=== PATIENT | male | born 1950 | race Caucasian/White ===

== ENCOUNTER 2016-05-18 10:29 | Inpatient (IN) | payer OTHER ==
[~2016-05-18] VITALS: Ht 175.3 cm; Wt 74.8 kg
[~2016-05-18 10:29] MED LIST: CEFAZOLIN1 G1 IV; CIPRO500 M1 PO
--- NOTE | 2016-05-18 10:36 | NUR ---
SIB DR MONAHAN OFFICE FOR INFECTION ON LEFT FOOT. PT HAD SEVERAL SURGERIES TO THE FOOT, AMPUTATED TOES, WOUND VAC REMOVED 3 MONTHS AGO D/T INFECTION
--- NOTE | 2016-05-18 11:08 | ED ANKLE/FOOT INJURY COMPLAINT ---
History of Present Illness General Chief Complaint: Foot or Ankle Injury Stated Complaint: SIB DR RAY FOR LEFT FOOT ULCER Source: patient, old records Exam Limitations: no limitations Vital Signs & Intake/Output Vital Signs & Intake/Output Vital Signs Date Time Temp Pulse Resp B/P Pulse O2 O2 Flow FiO2 Ox Delivery Rate 05/19 0922 98.7 67 16 113/61 99 Room Air 05/19 0629 99.2 75 18 106/61 99 Room Air 05/19 0442 99.2 70 16 111/66 05/19 0142 96.5 66 18 90/52 98 Room Air 05/18 2242 97.2 73 16 88/52 97 Room Air 05/18 2200 84/48 05/18 2045 80/48 05/18 1945 98.3 104 16 82/42 100 05/18 1902 99.2 05/18 1859 99.2 05/18 1815 101.0 05/18 1734 101.5 102 18 113/62 98 Room Air 05/18 1412 98.9 102 20 120/70 98 Room Air 05/18 1035 99.2 120 20 117/87 99 Room Air ED Intake and Output 05/19 0000 05/18 1200 Intake Total Output Total 250 Balance -250 Output, Urine 250 Patient 165 lb 165 lb Weight Allergies Coded Allergies: Penicillins (Intermediate, ANAPHYLAXIS 03/24/16) vancomycin (Intermediate, DIZZINESS 03/24/16) Uncoded Allergies: CLEANING PRODUCTS (Severe, ANAPHYLAXIS 08/21/15) Reconcile Medications No Known Home Medications Triage Note: SIB DR MONAHAN OFFICE FOR INFECTION ON LEFT FOOT. PT HAD SEVERAL SURGERIES TO THE FOOT, AMPUTATED TOES, WOUND VAC REMOVED 3 MONTHS AGO D/T INFECTION Triage Nurses Notes Reviewed? yes Occurred: last week Duration: week(s): (1), constant, getting worse Timing: recent history Severity: moderate Severity Numbers: 6 Pain/Injury Location: Left: Heel. Method of Injury: unknown Modifying Factors: Worsens With: movement, other (weight bearing). Associated Symptoms: redness HPI: 65 year old male with history of a nonhealing ulcer to his left foot with underlying osteomyelitis, multiple bilateral foot surgeries and amputation status post frostbite presents sent in by his visiting nurse for evaluation. The patient states that he finished a course of Cipro and fracture 10 days ago for infections to his heel. Patient states that since she is finishing antibiotics is noticed increasing more discharge and pain from the wounds, and has been unable to bear weight on the leg secondary to pain. He denies any numbness or tingling no fevers however reports a chills. The visiting nurse comes every other day and states that this has been getting worse. There are no modifying factors otherwise or associated symptoms. (EDY NAIR) Past History Travel History Traveled to [place] past 21 day No Medical History Any Pertinent Medical History? 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 History of MRSA: Yes History of VRE: No History of CDIFF: No Surgical History Surgical History: 12 FOOT SURGERIES APPENDECTOMY Psychosocial History Who do you live with Son Services at Home Nursing What is your primary language Albanian Tobacco Use: Quit >30 days ago ETOH Use: denies use Illicit Drug Use: denies illicit drug use Family History Family History, If Any: Relation not specified for: *No pertinent family history Hx Contributory? No (EDY NAIR) Review of Systems Review of Systems Constitutional: Reports: no symptoms, see HPI. All Other Systems: Reviewed and Negative Comments Review of systems: See HPI, All other systems negative. Constitutional, no chills no fever, no malaise HEENT: No visual changes no sore throat no congestion Cardiovascular: No chest pain , no palpitation Skin, see hpi Respiratory: No dyspnea no cough no sputum GI: No nausea no vomiting, no diarrhea, : No dysuria Muscle skeletal: joint pain, no joint swelling, no back pain, no neck pain, Neurologic: No numbness no confusion, no headache Psych: No stress Heme/endocrine: No bruising no bleeding Immunology: No lymphadenopathy, (EDY NAIR) Physical Exam Physical Exam General Appearance: well developed/nourished, alert, awake Leg/Knee/Thigh Left: normal range of motion Comments: Well-developed well-nourished person in no acute distress HEENT: Normal EENT exam; PERRL, EOMI, HEAD is atraumatic. moist mucous membranes. Neck: Supple normal range of motion Back: Nontender, no CVA tenderness. Full range of motion Cardiovascular: Regular rate and rhythms no murmurs rubs Respiratory: No respiratory distress. Patient speaking in full complete sentences. Breath sounds clear to auscultation bilaterally: NO W/R/R Abdomen: Soft, nontender upper Extremity: No edema, full range of motion of extremities, normal and equal pulses bilaterally, 5 out of 5 strength noted to bilateral upper extremities Hip/Pelvis: Atraumatic/Stable. FROM. No pain with pelvic compression Knee: Atraumatic/stable. FROM. No joint swelling, no effusion. No laxity. No pain with ROM Leg: Atraumatic. Nontender. No edema, 5 out of 5 strength in the lower extremity, normal dorsiflexion of great toe bilaterally, gross sensation is intact Ankle/Foot: Status post left foot tarsal amputation, there is a 1 x 1 cm open sore to the medial malleolus with surrounding erythema and induration tenderness to palpation , seroussanguois discharge noted noted dressing, there is a 7 x 4 cm chronic wound to the distal aspect of the left foot there is no discharge no surrounding erythema, there is a 1 x 1 cm open sore to the lateral malleolus with mild surrounding erythema and no induration, minimal discharge, no effusion. No laxity on exam Pulses: Normal/equal DP/PT pulses bilaterally. Brisk cap refill Neuro: Alert oriented x3, motor sensory normal, There were no obvious focal neurologic abnormalities. Skin: No appreciable rash on exposed skin, skin is warm and dry. Psych: Mood and affect is normal, memory and judgment is normal. (RICO FLORES,EDY) Progress Differential Diagnosis: cellulitis, septic arthritis, gout, fracture, contusion, compartmental syndrome, osteomyelitis Plan of Care: Orders Procedure Date/time Status TROPONIN LEVEL 05/19 1300 Active EKG 05/19 1300 Active Patient Data 05/19 0808 Active TROPONIN LEVEL 05/19 0600 Complete EKG 05/19 0600 Active LACTIC ACID 05/19 0117 Complete Add-on Test (ER Only) 05/19 0111 Active EKG 05/19 0100 Active Transfer patient to 05/19 UNK Active Regular Diet 05/18 D Active TROPONIN LEVEL 05/18 2330 Complete LACTIC ACID 05/18 2216 Complete EKG 05/18 2216 Active Turn and Reposition 05/18 171 Active Skin Integrity Protocol 05/18 171 Active Skin/Pressure Ulcer Assess (Sk 05/18 171 Active NUTRITIONAL CONSULT 05/18 171 Active Teach/Educate 05/18 164 Active Nutritional Intake, Monitor 05/18 1646 Active Isolation 05/18 164 Active Patient Care Conference 05/18 1646 Active Activity/Ambulation 05/18 1646 Active Intake & Output 05/18 1411 Active Patient Data 05/18 1358 Active Vital Signs 05/18 1358 Active Admit to inpatient 05/18 1204 Active THYROID STIMULATING HORMONE 05/18 1151 Complete GLYCOSYLATED HGB 05/18 1151 Active FREE T4 05/18 1151 Complete Code Status 05/18 1148 Active PARTIAL THROMBOPLASTIN TIME 05/18 1139 Complete PROTHROMBIN TIME 05/18 1139 Complete Saline Lock 05/18 1129 Active BLOOD CULTURE 05/18 1129 Active COMPREHENSIVE METABOLIC PANEL 05/18 1129 Complete CBC WITHOUT DIFFERENTIAL 05/18 1129 Complete Current Medications Sig/Efren Start time Last Medication Dose Stop Time Status Admin Acetaminophen 650 MG Q6-PRN PRN 05/18 1815 AC (Tylenol) Oxycodone/ 1 TAB Q4P PRN 05/18 1800 AC Acetaminophen (Percocet) Laboratory Tests 05/19/16 0646: Troponin I 0.54 *H 05/19/16 0135: Lactic Acid 1.2 05/18/16 2341: Troponin I 0.44 *H 05/18/16 2341: Lactic Acid 1.4 05/18/16 1151: Hemoglobin A1c Pending 05/18/16 1151: Anion Gap 13, Estimated GFR > 60, BUN/Creatinine Ratio 13.0, Glucose 111 H, Calcium 9.8, Total Bilirubin 0.4, AST 15 L, ALT 25, Alkaline Phosphatase 263 H , Total Protein 7.4, Albumin 3.7, Globulin 3.7, Albumin/Globulin Ratio 1.0 L, TSH 2.320, Free T4 1.37, PT 13.0 H, INR 1.24 H, APTT 30, CBC w Diff NO MAN DIFF REQ, RBC 4.36 L, MCV 78.0 L, MCH 25.6 L, RDW 16.5 H, MPV 7.5, Gran % 77.8 H, Lymphocytes % 12.9 L, Monocytes % 5.7, Eosinophils % 1.9, Basophils % 1.7, Absolute Granulocytes 7.4 H, Absolute Lymphocytes 1.2, Absolute Monocytes 0.5, Absolute Eosinophils 0.2, Absolute Basophils 0.2, PUBS MCHC 32.8 L Microbiology 05/18 1151 BLOOD: Blood Culture - RECD 05/18 1138 BLOOD: Blood Culture - RECD Labs ordered old records reviewed call placed to podiatry Case discussed with Dr. hernandez 05/18/2016 11:51:58 AM I spoke with Dr. Monahan who advised drink oh and Cipro blood cultures coags MRI of the foot without contrast. And he will admit to his service. 05/18/2016 1:39:32 PM discussed with the patient all his lab results resting comfortably nausea has resolved with Zofran (RICO FLORES,EDY) Diagnostic Imaging: Viewed by Me: MRI. Discussed w/RAD: MRI. Radiology Impression: PATIENT: NALINI CALLOWAY PRESENT AGE: 65 PATIENT ACCOUNT NO: [id number] : 52 LOCATION: [facility] ORDERING PHYSICIAN: EDY FLORES SERVICE DATE: 05/18/16 EXAM TYPE: MRI - MRI- LT FOOT W/O PAWEL EXAMINATION: MRI OF LEFT FOOT WITHOUT CONTRAST CLINICAL INFORMATION: 65-year-old male with history of osteomyelitis. Left foot wound. Evaluate for fluid collection. COMPARISON: Radiographs of left foot from 2015 and MRI of the foot from 02/17/2016. TECHNIQUE: Noncontrast MR imaging examination of the left foot and ankle was performed on a high-field 1.5 Tara magnet using long axis STIR, sagittal STIR and sagittal T1-weighted sequences. The MR technologist reports that patient was in severe pain, had vomiting, and was unable to undergo additional imaging. FINDINGS: Compared to 02/17/2016, there are new erosions of the plantar, lateral cuboid with surrounding sclerosis and extensive marrow edema of the cuboid, consistent with osteomyelitis. There is minimal cortical erosive change at the base of the fifth metatarsal with new marrow edema in the residual fifth metatarsal. Compared to 02/17/2016, there is increased bone marrow edema of the residual fourth metatarsal. The other residual metatarsal bases, middle cuneiform and medial cuneiform have been resected. There are new findings of marrow edema/inflammation within the lateral cuneiform and navicular, and there is new, patchy edema within the anterior calcaneus, as well, extending from the region of the calcaneocuboid joint, which has a small joint effusion. The talus, visualized distal tibia and fibula have normal marrow signal. No ankle joint effusion. The visualized muscles of the extremity are hyperintense on T2 imaging, likely secondary to chronic diabetic neuropathy/myopathy. There are no fluid collections detected on this noncontrast exam. The distal Achilles tendon is normal. The visualized flexor, extensor and tibialis tendons are unremarkable. A small amount of tenosynovial fluid surrounds the distal posterior tibial tendon, suggestive of mild tenosynovitis. IMPRESSION: Compared to 02/17/2016, there has been interval resection of the 1st, 2nd and 3rd metatarsal bases as well as medial and middle cuneiforms. Current findings show progression of osteomyelitis, now involving the cuboid, adjacent anterior calcaneus, 4th and 5th metatarsal bases, lateral cuneiform, and likely the navicular, as well. No focal fluid collections. DICTATED BY: ELIZABETH RENTERIA MD DATE/TIME DICTATED:05/18/161524 HOUSE PAINTING INSTRUCTOR:SHABNAM DATE/TIME TRANSCRIBED:05/18/161524 CONFIDENTIAL, DO NOT COPY WITHOUT APPROPRIATE AUTHORIZATION. <Electronically signed in Other Vendor System> SIGNED BY: ELIZABETH RENTERIA MD 05/18/16 1546 (EDY NAIR) Departure Departure Time of Disposition: 1145 Disposition: STILL A PATIENT Condition: Stable Clinical Impression Primary Impression: Osteomyelitis Secondary Impressions: Cellulitis Referrals: PATIENT HAS NO PRIMARY CARE DR (PCP/Family) Departure Forms: Customer Survey General Discharge Information Prescriptions: Current Visit Scripts No Known Home Medications Admission Note Spoke With: ZENA MONAHAN DPM Documentation of Exam: Documentation of any treatments & extenuating circumstances including Concerns Regarding Discharge (functional status, medication knowledge or non-compliance, living conditions, etc.) that warrant an admission rather than observation: [IV antibiotics trend labs pending MRI possible OR, trend blood cultures premature discharge the medically harmful (EDY NAIR) PA/DIRECTOR EDUCATION Co-Sign Statement Statement: ED Attending supervision documentation- [X] I saw and evaluated the patient. I have also reviewed all the pertinent lab results and diagnostic results. I agree with the findings and the plan of care as documented in the PA's/DIRECTOR EDUCATION's documentation. [X] I have reviewed the ED Record and agree with the PA's/DIRECTOR EDUCATION's documentation. [] Additions or exceptions (if any) to the PAs/DIRECTOR EDUCATION's note and plan are summarized below: [] (OLIVER NGUYEN,KALIN)
--- NOTE | 2016-05-18 11:44 | NUR ---
PT TO [facility], STATES THAT HE HAD BOTTOM OF L FOOT AMPUTATED BY DR MONAHAN IN FEBRUARY AND THAT HE HAD A WOUND VAC PLACED FOR A FEW MONTHS AND THEN REMOVED, STATES THAT HE WAS STARTED ON ABT BEFORE DANIELLE BY DR MONAHAN DUE TO INFECTION , FINISHED THEM DANIELLE ARMSTRONG AND 2 DAYS LATER FODIAMOND BECAME INFECTED AGAIN, STATES THAT HE HAS A LOT OF PAIN AND THAT HE CAN BARELY WALK EVEN WITH THE ASSISTANCE OF A WALKER. PT EVALUATED AND IS TO BE ADMITTED. 1ST SET BC DRAWN AND SENT
[2016-05-18 11:58] LABS: ABSOLUTE BASOPHIL COUNT 0.2 /CUMM (0.0-0.2); ABSOLUTE EOSINOPHIL COUNT 0.2 /CUMM (0.0-0.7); ABSOLUTE GRANULOCYTE CT 7.4 /CUMM (1.4-6.5); ABSOLUTE LYMPH COUNT 1.2 /CUMM (1.2-3.4); ABSOLUTE MONOCYTE COUNT 0.5 /CUMM (0.10-0.60); BASOPHIL % 1.7 % (0.0-2.0); EOSINOPHIL % 1.9 % (0-5); GRANULOCYTE % 77.8 % (42.2-75.2); MEAN CORPUSCULAR HGB 25.6 PG (27.0-31.0); MEAN CORPUSCULAR HGB CONC 32.8 G/DL (33.0-37.0); MEAN PLATELET VOLUME 7.5 FL (7.4-10.4); PLATELET COUNT 626 /CUMM (130-400); RBC DISTRIBUTION WIDTH 16.5 % (11.5-14.5); RED BLOOD CELL CT 4.36 /CUMM (4.70-6.10); WHITE BLOOD CELL COUNT 9.4 /CUMM (4.8-10.8)
--- NOTE | 2016-05-18 12:03 | NUR ---
IV ABT INFUSING AFTER BC X 2 SENT. FOOD TRAY ORDERED AT THIS TIME
[2016-05-18 12:20] LABS: PTT 30 SEC (25-37)
--- NOTE | 2016-05-18 12:55 | NUR ---
PT COMPLAINS OF NAUSEA AT THIS TIME. STATES THAT HE FEELS THE ABT IS MAKING HIM SICK. PT HAS HAD VANCO IN THE PAST. PT ALSO COMPLAINS THAT HE CAN'T STOP SHIVERING AT THIS TIME, TEMP 99.6 PA AWARE, PT NEDICATED WITH ZOFRAN PER ORDER
--- NOTE | 2016-05-18 14:13 | NUR ---
PT RESTING ON SELECT AT [place], AWARE THAT HE IS TO BE ADMITTED TO HOSPITAL AND THAT DR MONAHAN TO COME SEE HIM. PT WAITING TO HAVE MRI.
--- NOTE | 2016-05-18 14:40 | NUR ---
PT ASSISTED UP TO BATHROOM VIA WHEEL CHAIR, PT NEEDED ASSISTANCE TO STAND DUE TO PAIN IN HIS L FOOT, PT COMPLAINED OF NAUSEA WHILE IN THE BATHROOM AND THEN VOMITTED A SMAL AMOUNT, PA AWARE AND PT MEDICATED WITH ZOFRAN. PT ASSISTED BACK TO STRETCHER AND OVER TO MRI AT THIS TIME
--- NOTE | 2016-05-18 15:29 | NUR ---
PT STATES THAT HIS STOMACH IS STILL UPSET, PA AT BEDSIDE AND PEPCID IV ORDERED AND HUNG AT THIS TIME.
--- NOTE | 2016-05-18 15:48 | MRI REPORT ---
EXAMINATION: MRI OF LEFT FOOT WITHOUT CONTRAST CLINICAL INFORMATION: 65-year-old male with history of osteomyelitis. Left foot wound. Evaluate for fluid collection. COMPARISON: Radiographs of left foot from 02/15/2016 and MRI of the foot from 02/17/2016. TECHNIQUE: Noncontrast MR imaging examination of the left foot and ankle was performed on a high-field 1.5 Tara magnet using long axis STIR, sagittal STIR and sagittal T1-weighted sequences. The MR technologist reports that patient was in severe pain, had vomiting, and was unable to undergo additional imaging. FINDINGS: Compared to 02/17/2016, there are new erosions of the plantar, lateral cuboid with surrounding sclerosis and extensive marrow edema of the cuboid, consistent with osteomyelitis. There is minimal cortical erosive change at the base of the fifth metatarsal with new marrow edema in the residual fifth metatarsal. Compared to 02/17/2016, there is increased bone marrow edema of the residual fourth metatarsal. The other residual metatarsal bases, middle cuneiform and medial cuneiform have been resected. There are new findings of marrow edema/inflammation within the lateral cuneiform and navicular, and there is new, patchy edema within the anterior calcaneus, as well, extending from the region of the calcaneocuboid joint, which has a small joint effusion. The talus, visualized distal tibia and fibula have normal marrow signal. No ankle joint effusion. The visualized muscles of the extremity are hyperintense on T2 imaging, likely secondary to chronic diabetic neuropathy/myopathy. There are no fluid collections detected on this noncontrast exam. The distal Achilles tendon is normal. The visualized flexor, extensor and tibialis tendons are unremarkable. A small amount of tenosynovial fluid surrounds the distal posterior tibial tendon, suggestive of mild tenosynovitis. IMPRESSION: Compared to 02/17/2016, there has been interval resection of the 1st, 2nd and 3rd metatarsal bases as well as medial and middle cuneiforms. Current findings show progression of osteomyelitis, now involving the cuboid, adjacent anterior calcaneus, 4th and 5th metatarsal bases, lateral cuneiform, and likely the navicular, as well. No focal fluid collections.
--- NOTE | 2016-05-18 16:10 | NUR ---
PT NOTED TO BE SLEEPING AT THIS TIME , REGULAR RESP RATE NOTED , FLUIDS CONTINUE TO INFUSE AT THIS TIME
--- NOTE | 2016-05-18 17:36 | NUR ---
PT FEBRILE AT THIS TIME AWARE
--- NOTE | 2016-05-18 17:51 | History & Physical Pre-Op ---
General Information and HPI History of Present Illness: Eulalio is a 65-year-old male with a history of locally invasive non-melanotic carcinoma, complicated by a chronic and recurrent left foot osteomyelitis. The patient is status post TMA right foot without any postoperative problems. Unfortunately, the patient presents to the ER today with a complaint of a red, swollen and painful left foot. Patient states that the home nurse became concerned after noticing drainage from the open ulceration. Eulalio denies systemic signs of infection. Patient denies nausea vomiting fever chills. 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 History of MRSA: Yes History of VRE: No History of CDIFF: No Isolation History: Standard Influenza Vaccine: 05/19/15 Surgical History Pertinent Surgical History: 12 FOOT SURGERIES APPENDECTOMY Past Family/Social History Family History Relations & Conditions if any Relation not specified for: *No pertinent family history Psychosocial History Where Do You Live? Home Who Do You Live With? 2 sons Services at Home Nursing Primary Language: Albanian Smoking Status: Current Everyday Smoker ETOH Use: denies use Illicit Drug Use: denies illicit drug use Functional Ability ADLs Independent: dressing, eating, toileting, bathing. Ambulation: independent IADLs Independent: shopping, housework, finances, food prep, telephone, transportation , medication admin. Review of Systems Review of Systems: Unremarkable except that noted in history of present illness Exam & Diagnostic Data Last 24 Hrs of Vital Signs/I&O Vital Signs Date Time Temp Pulse Resp B/P Pulse O2 O2 Flow FiO2 Ox Delivery Rate 05/18 1734 101.5 102 18 113/62 98 Room Air 05/18 1412 98.9 102 20 120/70 98 Room Air 05/18 1035 99.2 120 20 117/87 99 Room Air Intake & Output 05/18 1600 05/18 0800 05/18 0000 Intake Total Output Total 250 Balance -250 Output, Urine 250 Patient 165 lb Weight Physical Exam: A necrotic ulcer is noted to the distal medial stump of the left foot with some purulent drainage identified medially and laterally. There is edema and proximal 3-4 cm of cellulitis extending about the periphery of the open wound. No crepitus or fluctuance identified. There is probing noted centrally at the wound bed approximately 2-3 cm. Assessment/Plan Assessment/Plan: Left foot cellulitis with a chronic and recalcitrant left foot osteomyelitis. Patient will be admitted for IV antibiotics and MRI to rule out persistent or recurrent osteomyelitis. As Ranked By This Provider Problem List: 1. Cellulitis 2. Osteomyelitis Attending MD Review Statement Attending Statement Attending MD Statement: examined this patient
--- NOTE | 2016-05-18 18:15 | NUR ---
IV TYLENOL INFUSING DUE TO TEMP 101.0 DR MONAHAN AT BEDSIDE AT THIS TIME TO SPEAK WITH PT
--- NOTE | 2016-05-18 18:59 | NUR ---
TEMP 99.2 AT THIS TIME , PT SITTING UP AND EATING DINNER. DENIES NAUSEA ,
--- NOTE | 2016-05-18 20:15 | NUR ---
REPEAT BLOOD PRESSURE 80/42 MANUALLY. NS BOLUS STARTED PER DR CARRERO
--- NOTE | 2016-05-18 20:59 | NUR ---
I SPOKE TO DR MONAHAN REGARDING PT'S DROP IN BP. DR MONAHAN MADE MEDICAL REFERRAL TO ATTENDING
--- NOTE | 2016-05-18 21:00 | NUR ---
ATTENDING AT BEDSIDE FOR EVAL
--- NOTE | 2016-05-18 21:31 | NUR ---
HOUSE STAFF AT BEDSIDE FOR EVAL
--- NOTE | 2016-05-18 22:17 | Cons- Medical ---
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 Patient presented to the emergency department after being evaluated by the visiting nurse due to left foot discharge, MRI was done and showed slow progression of the left foot osteomyelitis ow involving the cuboid, adjacent anterior calcaneus, 4th and 5th metatarsal bases, lateral cuneiform, and likely the navicular. Patient was started on IV vancomycin and ciprofloxacin. And the patient will call for the operation room most likely tomorrow for possible excision and debridement by Dr. Meneses. Couple hours after admission patient had low blood pressure of 80/48 from average 110/80, patient deny any symptoms like chest pain, discomfort, dizziness, lightheaded, feeling dehydrated, difficulty breathing, palpitation, orthopnea, swelling in his lower extremity. Abdominal pain, nausea, vomiting, hematuria, dysuria, burning during urination, headaches, change in vision or hearing. On admission patient has temperature of 101.5. Tachycardia 100s. Allergies/Medications Allergies: Coded Allergies: Penicillins (Intermediate, ANAPHYLAXIS 03/24/16) vancomycin (Intermediate, DIZZINESS 03/24/16) Uncoded Allergies: CLEANING PRODUCTS (Severe, ANAPHYLAXIS 08/21/15) Home Med List: No Known Home Medications Current Medications: Current Medications Sig/Efren Start time Last Medication Dose Route Stop Time Status Admin Acetaminophen 1,000 MG ONCE ONE 05/18 1815 DC 05/18 N/A 1 UNIT IV 05/18 1829 1815 Acetaminophen 650 MG Q6-PRN PRN 05/18 1815 AC PO Acetaminophen 0 .STK-MED ONE 05/18 1808 DC IV Ciprofloxacin 400 MG BID 05/18 2200 AC 05/18 IV 2358 Ciprofloxacin 500 MG ONCE ONE 05/18 1200 DC 05/18 PO 05/18 1201 1202 Ciprofloxacin 0 .STK-MED ONE 05/18 1156 DC PO Famotidine 20 MG ONCE ONE 05/18 1530 DC / IV 05/18 1531 1529 Famotidine 0 .STK-MED ONE 05/18 1527 DC IV Heparin Sodium 0 .STK-MED ONE 05/18 2347 DC (Porcine) .ROUTE Heparin Sodium 5,000 UNIT Q8 05/18 2200 AC 05/18 (Porcine) SC 2358 Ondansetron HCl 0 .STK-MED ONE 05/18 1436 DC .ROUTE Ondansetron HCl 4 MG ONCE ONE 05/18 1430 DC 05/18 IV 05/18 1431 1440 Ondansetron HCl 4 MG ONCE ONE 05/18 1315 DC / IV 05/18 1316 1305 Ondansetron HCl 0 .STK-MED ONE 05/18 1259 DC .ROUTE Oxycodone/ 1 TAB Q4P PRN 05/18 1800 AC Acetaminophen PO Sodium Chloride 1,000 ML BOLUS ONE 05/18 2315 DC / IV 05/19 0014 2358 Sodium Chloride 1,000 ML BOLUS ONE 05/18 2045 DC 05/18 IV 05/18 2144 2059 Sodium Chloride 1,000 ML BOLUS ONE 05/18 1445 DC / IV 05/18 1544 1500 Vancomycin HCl 1,000 MG Q12 05/18 2200 AC 05/18 Sodium Chloride 250 ML IV 2359 Vancomycin HCl 1,000 MG ONCE ONE 05/18 1200 DC 05/18 Sodium Chloride 250 ML IV 05/18 1339 1202 Vancomycin HCl 0 .STK-MED ONE 05/18 1156 DC .ROUTE Review of Systems Review of Systems Constitutional: Reports: see HPI. EENTM: Reports: see HPI. Cardiovascular: Reports: see HPI. Respiratory: Reports: see HPI. GI: Reports: see HPI. Genitourinary: Reports: see HPI. Musculoskeletal: Reports: see HPI. 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 Surgical History Surgical History: 12 FOOT SURGERIES APPENDECTOMY Family History Relations & Conditions If Any: Relation not specified for: *No pertinent family history Psychosocial History Where Do You Live? Home Who Do You Live With? 2 sons Services at Home: Nursing Primary Language: Ukrainian Smoking Status: Current Everyday Smoker ETOH Use: denies use Illicit Drug Use: denies illicit drug use Functional Ability ADLs Independent: dressing, eating, toileting, bathing. Ambulation: independent IADLs Independent: shopping, housework, finances, food prep, telephone, transportation , medication admin. Exam & Diagnostic Data Last 24 Hrs of Vital Signs/I&O Vital Signs Date Time Temp Pulse Resp B/P Pulse O2 O2 Flow FiO2 Ox Delivery Rate 05/18 2242 97.2 73 16 88/52 97 Room Air 05/18 2200 84/48 05/18 2045 80/48 05/18 1945 98.3 104 16 82/42 100 05/18 1902 99.2 05/18 1859 99.2 05/18 1815 101.0 05/18 1734 101.5 102 18 113/62 98 Room Air 05/18 1412 98.9 102 20 120/70 98 Room Air 05/18 1035 99.2 120 20 117/87 99 Room Air Intake & Output 05/19 0800 05/19 0000 05/18 1600 Intake Total Output Total 250 Balance -250 Output, Urine 250 Patient 165 lb Weight Physical Exam General Appearance: well developed/nourished, no apparent distress, alert, awake , comfortable Head: atraumatic, normal appearance Eyes: Bilateral: normal appearance, PERRL, EOMI. Neck: normal inspection, supple Respiratory: normal breath sounds, chest non-tender, no respiratory distress, lungs clear Cardiovascular: regular rate/rhythm Peripheral Pulses: 2+ radial (R), 2+ radial (L) Gastrointestinal: normal bowel sounds, soft, non-tender Extremities: RIGHT FOOT STATUS POST EXCISION AND DEBRIDEMENT, LEFT FOOT DRESSING NOTED CLEAN Last 24 Hrs of Labs/Alex: Laboratory Tests 05/18/16 2341: Troponin I 0.44 *H 05/18/16 2341: Lactic Acid 1.4 05/18/16 1151: Anion Gap 13, Estimated GFR > 60, BUN/Creatinine Ratio 13.0, Glucose 111 H, Calcium 9.8, Total Bilirubin 0.4, AST 15 L, ALT 25, Alkaline Phosphatase 263 H , Total Protein 7.4, Albumin 3.7, Globulin 3.7, Albumin/Globulin Ratio 1.0 L, PT 13.0 H, INR 1.24 H, APTT 30, CBC w Diff NO MAN DIFF REQ, RBC 4.36 L, MCV 78.0 L, MCH 25.6 L, RDW 16.5 H, MPV 7.5, Gran % 77.8 H, Lymphocytes % 12.9 L, Monocytes % 5.7, Eosinophils % 1.9, Basophils % 1.7, Absolute Granulocytes 7.4 H, Absolute Lymphocytes 1.2, Absolute Monocytes 0.5, Absolute Eosinophils 0.2, Absolute Basophils 0.2, PUBS MCHC 32.8 L Diagnostic Data EKG Results ST segment elevation in lead II and V6, otherwise sinus rhythm heart rate 76 QTC 419 Other Results EXAM TYPE: MRI - MRI-LT FOOT W/O PAWEL EXAMINATION: MRI OF LEFT FOOT WITHOUT CONTRAST CLINICAL INFORMATION: 65-year-old male with history of osteomyelitis. Left foot wound. Evaluate for fluid collection. COMPARISON: Radiographs of left foot from 02/15/2016 and MRI of the foot from 02/17/2016. TECHNIQUE: Noncontrast MR imaging examination of the left foot and ankle was performed on a high-field 1.5 Tara magnet using long axis STIR, sagittal STIR and sagittal T1-weighted sequences. The MR technologist reports that patient was in severe pain, had vomiting, and was unable to undergo additional imaging. FINDINGS: Compared to 02/17/2016, there are new erosions of the plantar, lateral cuboid with surrounding sclerosis and extensive marrow edema of the cuboid, consistent with osteomyelitis. There is minimal cortical erosive change at the base of the fifth metatarsal with new marrow edema in the residual fifth metatarsal. Compared to 02/17/2016, there is increased bone marrow edema of the residual fourth metatarsal. The other residual metatarsal bases, middle cuneiform and medial cuneiform have been resected. There are new findings of marrow edema/inflammation within the lateral cuneiform and navicular, and there is new, patchy edema within the anterior calcaneus, as well, extending from the region of the calcaneocuboid joint, which has a small joint effusion. The talus, visualized distal tibia and fibula have normal marrow signal. No ankle joint effusion. The visualized muscles of the extremity are hyperintense on T2 imaging, likely secondary to chronic diabetic neuropathy/myopathy. There are no fluid collections detected on this noncontrast exam. The distal Achilles tendon is normal. The visualized flexor, extensor and tibialis tendons are unremarkable. A small amount of tenosynovial fluid surrounds the distal posterior tibial tendon, suggestive of mild tenosynovitis. IMPRESSION: Compared to 02/17/2016, there has been interval resection of the 1st, 2nd and 3rd metatarsal bases as well as medial and middle cuneiforms. Current findings show progression of osteomyelitis, now involving the cuboid, adjacent anterior calcaneus, 4th and 5th metatarsal bases, lateral cuneiform, and likely the navicular, as well. No focal fluid collections. 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 Patient presented to the emergency department after being evaluated by the visiting nurse due to left foot discharge. Troponin and lactic acid was added after we saw the patient, troponin came back 0.44, security developer land conservation specialist Dr. Monge was notified, and he advised to keep trending troponin and EKG and transferred the patient to telemetry floor, no need for anticoagulation for now as that could be most likely secondary to underlying infection. Dr. Monahan was notified. Problem list: -Recurrent osteomyelitis -Hypotension most likely secondary to sepsis -Positive troponin with EKG changes Plan: -Transferred the patient to telemetry floor for close monitoring -We'll continue IV normal saline fluid bolus up to 4 L -We'll start the patient on maintenance IV fluid after blood pressure maintained above 95 systolic. -We'll continue trending the patient blood pressure -We'll continue trending the patient troponin and EKG -Cardiology team will see the patient in morning -We will hold off any anticoagulation for now and will notify the security developer if any acute changes h happened overnight. -We'll check the patient TSH, free T4, hemoglobin A1c Consult Acknowledgment - Thank you for your consult request. ROSANGELA,AARTEMelanie 05/18/16 0409: Assessment/Plan Consult Acknowledgment - Thank you for your consult request. Attending MD Review Statement Attending Statement Attending MD Statement: examined this patient, discuss w/resident/PA/INVESTIGATIVE SHOPPER, agreed w/resident/PA/INVESTIGATIVE SHOPPER, reviewed EMR data (avail), reviewed images, amended to note Attending Assessment/Plan: CC: Hypotension PMHx: Recurrent Foot infections secondary, remote history frostbite, locally invasive non-melanotic carcinoma on the left foot, S/P DM a right foot patient Patient was sent to ER by home nurse for worsening left foot infection, which was read swollen and painful and pus draining according to patient. Patient was admitted awaiting bed for [facility], developed episode of hypotension in ER. So medical team was consulted. Patient was comfortably sitting, denied any chest pain, diaphoresis, palpitations, headache, presyncope, abdominal pain, nausea vomiting, diarrhea. No obvious bleeding. Patient denies any history of hypertension, diabetes, previous DC or stroke. Patient smokes "5 cigarettes"per day quit 5 days back. Denied alcohol use, denied illicit drug use, allergic to penicillin. Vitals: Tmax 101.5, tachycardia in 110s, RR 16, at presentation blood pressure was 117/87 which dropped down to 82/52. Saturating well on room air. On examination: On a O 3, no acute distress, no diaphoresis, no respiratory distress, neck supple, no lymphadenopathy, mucosa dry, CVS: S1-S2, RRR. RS: Clear air Entry bilaterally present. Abdomen: Soft, NT, ND, bowel sounds present, no focal neurological deficit. Left lower extremity : Redness, warmth, tender, mild edema along with foot wound dressed., No obvious crepitus. (I personally did not see the wound as Dr. Monahan had seen and dressed the wound) Labs : WBC 9.4, granulocytes 77%, hemoglobin 11.1 (no change since February), platelet count 626, INR 1.24, BMP, LFT, unremarkable except glucose 111, alkaline phosphatase 263 (chronically elevated ) Previous hemoglobin A1c 5.2. Previous left LE wound cultures were reviewed shows alpha strep, diphtheroids, Pseudomonas. MR right foot was obtained: Which shows concern of progression of osteomyelitis. A and P #1 hypotension: Secondary to sepsis with underlying osteomyelitis with secondary cellulitis, no evidence of acute volume loss. No acute evidence of any chest pain or elevated JVD. Aggressive hydration up to 2-3 L, followed by maintenance fluid. Closely watch blood pressure, pressors if indicated., Trend lactic acid, check EKG. And agree with vancomycin and ciprofloxacin. If persistently hypotensive and fever spikes then add metronidazole for anaerobic coverage. #2 anemia: No evidence of acute blood loss on chronic blood loss on history and physical examination. His hemoglobin is chronically low since February. But his platelets is elevated in this situation iron studies should be obtained to rule out any iron deficiency anemia secondary to chronic blood Vs anemia of chronic disease secondary to recurrent infections. This can be done outpatient. #3 continue DVT prophylaxis Appreciate consult, we will follow.
--- NOTE | 2016-05-18 23:43 | NUR ---
BLOOD DRAWN AND SENT TO LAB [facility]
--- NOTE | 2016-05-18 23:58 | NUR ---
2ND NS BOLUS STARTED. PT MEDICATED WITH CIPRO 400MG AT 400MG/HR IN L FA. PT ALSO MEDICATED WITH VANCOMYCIN 1G AT 1G/HR
--- NOTE | 2016-05-19 00:36 | NUR ---
CRITICAL TEST RESULTS [id number] NALINI CALLOWAY 65 M TESTS AND RESULTS: TROPONIN 0.44 Results received and read back by: OLLIE PANTOJA Results received date and time: 05/19/16 0037 The following provider was notified of the results, and read the results back: DR KENDALL Notified date and time: 05/19/16 at 0032
--- NOTE | 2016-05-19 01:39 | NUR ---
BLOOD DRAWN AND SENT TO LAB [facility]
--- NOTE | 2016-05-19 03:06 | NUR ---
FOURTH NS BOLUS STARTED
--- NOTE | 2016-05-19 04:42 | NUR ---
NS BOLUS COMPLETE. PT BP RETURNED TO BASELINE AT 111/66
--- NOTE | 2016-05-19 05:39 | NUR ---
PT MEDICATED WITH HEPARIN 5,000 UNITS IN R ABD. NS STARTED AT 100ML/HR
--- NOTE | 2016-05-19 06:48 | NUR ---
REPEAT TROPONIN OBTAINED AND SENT TO LAB
--- NOTE | 2016-05-19 07:30 | NUR ---
CRITICAL TEST RESULTS [id number] NALINI CALLOWAY 65 M TESTS AND RESULTS: TROPONIN 0.54 Results received and read back by: MIGUEL NÚÑEZ Results received date and time: 05/19/16 0730 The following provider was notified of the results, and read the results back: HOUSE STAFF PAGED Notified date and time: 05/19/16 at 0730
--- NOTE | 2016-05-19 07:34 | NUR ---
MOD AWARE OF TROPONIN LEVEL AT THIS TIME.
--- NOTE | 2016-05-19 07:50 | NUR ---
PT RESTING ON STRETCHER, OFFERS NO COMPLAINTS AT THIS TIME. REMAINS NSR ON MONITOR. DENIES CHEST PAIN.
--- NOTE | 2016-05-19 08:10 | NUR ---
PT UPGRADED TO TELE. MOD/REG/NURSE SUPER AWARE.
--- NOTE | 2016-05-19 10:17 | Cons- Cardiology ---
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 Patient presented to the emergency department after being evaluated by the visiting nurse due to left foot discharge, MRI was done and showed slow progression of the left foot osteomyelitis ow involving the cuboid, adjacent anterior calcaneus, 4th and 5th metatarsal bases, lateral cuneiform, and likely the navicular. Patient was started on IV vancomycin and ciprofloxacin. And the patient will call for the operation room most likely tomorrow for possible excision and debridement by Dr. Meneses. Couple hours after admission patient had low blood pressure of 80/48 from average 110/80, patient deny any symptoms like chest pain, discomfort, dizziness, lightheaded, feeling dehydrated, difficulty breathing, palpitation, orthopnea, swelling in his lower extremity. Abdominal pain, nausea, vomiting, hematuria, dysuria, burning during urination, headaches, change in vision or hearing. On admission patient has temperature of 101.5. Tachycardia 100s. The above HPI was obtained from the house staff. Patient has low functional activity. He denies any chest pains or unusual shortness of breath. He has no primary doctor. He claims to have no medical problems. His been a long-standing smoker. Allergies/Medications Allergies: Coded Allergies: Penicillins (Intermediate, ANAPHYLAXIS 03/24/16) vancomycin (Intermediate, DIZZINESS 03/24/16) Uncoded Allergies: CLEANING PRODUCTS (Severe, ANAPHYLAXIS 08/21/15) Home Med List: No Known Home Medications Current Medications: Current Medications Sig/Efren Start time Last Medication Dose Route Stop Time Status Admin Acetaminophen 1,000 MG ONCE ONE 05/18 181 DC 05/18 N/A 1 UNIT IV 05/18 182 181 Acetaminophen 650 MG Q6-PRN PRN 05/18 181 AC PO Acetaminophen 0 .STK-MED ONE 05/18 1808 DC IV Ciprofloxacin 400 MG BID 05/18 2200 AC 05/18 IV 2358 Ciprofloxacin 500 MG ONCE ONE 05/18 1200 DC 05/18 PO 05/18 1201 1202 Ciprofloxacin 0 .STK-MED ONE 05/18 1156 DC PO Famotidine 20 MG ONCE ONE 05/18 1530 DC / IV 05/18 1531 1529 Famotidine 0 .STK-MED ONE 05/18 1527 DC IV Heparin Sodium 0 .STK-MED ONE 05/19 0533 DC (Porcine) .ROUTE Heparin Sodium 0 .STK-MED ONE 05/18 2347 DC (Porcine) .ROUTE Heparin Sodium 5,000 UNIT Q8 05/18 2200 AC 05/19 (Porcine) SC 0538 Ondansetron HCl 0 .STK-MED ONE 05/18 1436 DC .ROUTE Ondansetron HCl 4 MG ONCE ONE 05/18 1430 DC 05/18 IV 05/18 1431 1440 Ondansetron HCl 4 MG ONCE ONE 05/18 1315 DC 05/18 IV 05/18 1316 1305 Ondansetron HCl 0 .STK-MED ONE 05/18 1259 DC .ROUTE Oxycodone/ 1 TAB Q4P PRN 05/18 1800 AC Acetaminophen PO Sodium Chloride 1,000 ML Q10H 05/19 0515 AC 05/19 IV 0538 Sodium Chloride 1,000 ML BOLUS ONE 05/19 0230 DC 05/19 IV 05/19 0329 0306 Sodium Chloride 1,000 ML BOLUS ONE 05/18 2315 DC 05/18 IV 05/19 0014 2358 Sodium Chloride 1,000 ML BOLUS ONE 05/18 2045 DC 05/18 IV 05/18 2144 2059 Sodium Chloride 1,000 ML BOLUS ONE 05/18 1445 DC 05/18 IV 05/18 1544 1500 Vancomycin HCl 1,000 MG Q12 05/18 2200 AC 05/18 Sodium Chloride 250 ML IV 2359 Vancomycin HCl 1,000 MG ONCE ONE 05/18 1200 DC 05/18 Sodium Chloride 250 ML IV 05/18 1339 1202 Vancomycin HCl 0 .STK-MED ONE 05/18 1156 DC .ROUTE Review of Systems Review of Systems Constitutional: Reports: see HPI. Cardiovascular: Reports: see HPI. Respiratory: Reports: see HPI. GI: Denies: no symptoms. Genitourinary: Denies: no symptoms. Musculoskeletal: Denies: no symptoms. Skin: Reports: see HPI. Neurological/Psychological: Denies: no symptoms. Hematologic/Endocrine: Denies: no symptoms. Past History Travel History Traveled to [place] past 21 day No Medical History Blood Transfusion Hx: No Neurological: NONE EENT: NONE Cardiovascular: NONE Respiratory: NONE Gastrointestinal: APPENDECTOMY Hepatic: NONE Renal: NONE Musculoskeletal: NANNETTE TOE AMPUTATIONS SKIN CANCER OF FEET FROSTBITE Psychiatric: NONE Endocrine: NONE Blood Disorders: NONE Cancer(s): SKIN CANCER MANAGEMENT DEPARTMENT CHAIR/Reproductive: NONE Other Medical Hx: FROSTBITE FEET. Surgical History Surgical History: 12 FOOT SURGERIES APPENDECTOMY Family History Relations & Conditions If Any: Relation not specified for: *No pertinent family history Psychosocial History Where Do You Live? Home Who Do You Live With? 2 sons Services at Home: Nursing Primary Language: Icelandic Smoking Status: Current Everyday Smoker ETOH Use: denies use Illicit Drug Use: denies illicit drug use Functional Ability ADLs Independent: dressing, eating, toileting, bathing. Ambulation: independent IADLs Independent: shopping, housework, finances, food prep, telephone, transportation , medication admin. Exam & Diagnostic Data Vital Signs and I&O Vital Signs Date Time Temp Pulse Resp B/P Pulse O2 O2 Flow FiO2 Ox Delivery Rate 05/19 0922 98.7 67 16 113/61 99 Room Air 05/19 0629 99.2 75 18 106/61 99 Room Air 05/19 0442 99.2 70 16 111/66 05/19 0142 96.5 66 18 90/52 98 Room Air 05/18 2242 97.2 73 16 88/52 97 Room Air 05/18 2200 84/48 05/18 2045 80/48 05/18 1945 98.3 104 16 82/42 100 05/18 1902 99.2 05/18 1859 99.2 05/18 1815 101.0 05/18 1734 101.5 102 18 113/62 98 Room Air 05/18 1412 98.9 102 20 120/70 98 Room Air 05/18 1035 99.2 120 20 117/87 99 Room Air Intake & Output 05/19 1600 05/19 0800 05/19 0000 05/18 1600 05/18 0800 05/18 0000 Intake Total Output Total 250 Balance -250 Output, Urine 250 Patient 165 lb Weight Physical Exam: Patient appears comfortable. Absent he denies any symptoms. Head normocephalic atraumatic [place] eyes sclera anicteric conjunctiva showed no pallor X or muscle were normal Neck no carotid bruits no jugular venous distention no thyroid masses dentition very poor Chest lungs were clear bilaterally Heart regular rhythm without audible murmurs Abdomen soft no organomegaly bowel sounds normal Extremities no clubbing or cyanosis. Right forefoot amputation. Left foot in dressing. Poor pedal pulses. Neurological no gross motor or sensory deficits Labs/Alex Results: Laboratory Tests 05/19 05/19 05/18 05/18 05/18 0646 0135 2341 2341 1151 Chemistry Hemoglobin A1c Pending Lactic Acid (0.7 - 2.1 mmol/L) 1.2 1.4 Troponin I (<0.11 ng/ml) 0.54 *H 0.44 *H 05/18 1151 Chemistry Sodium (137 - 145 mmol/L) 137 Potassium (3.5 - 5.1 mmol/L) 4.8 Chloride (98 - 107 mmol/L) 95 L Carbon Dioxide (22 - 30 mmol/L) 29 Anion Gap (5 - 16) 13 BUN (9 - 20 mg/dL) 13 Creatinine (0.7 - 1.2 mg/dL) 1.0 Estimated GFR (>60 ml/min) > 60 BUN/Creatinine Ratio (7 - 25 %) 13.0 Glucose (65 - 99 mg/dL) 111 H Calcium (8.4 - 10.2 mg/dL) 9.8 Total Bilirubin (0.2 - 1.3 mg/dL) 0.4 AST (17 - 59 U/L) 15 L ALT (21 - 72 U/L) 25 Alkaline Phosphatase (< 127 U/L) 263 H Total Protein (6.3 - 8.2 g/dL) 7.4 Albumin (3.5 - 5.0 g/dL) 3.7 Globulin (1.9 - 4.2 gm/dL) 3.7 Albumin/Globulin Ratio (1.1 - 2.2 %) 1.0 L TSH (0.270 - 4.200 uIU/mL) 2.320 Free T4 (0.78 - 2.44 ng/dL) 1.37 Coagulation PT (9.4 - 12.5 SEC) 13.0 H INR (0.90 - 1.17) 1.24 H APTT (25 - 37 SEC) 30 Hematology CBC w Diff NO MAN DIFF REQ WBC (4.8 - 10.8 /CUMM) 9.4 RBC (4.70 - 6.10 /CUMM) 4.36 L Hgb (14.0 - 18.0 G/DL) 11.1 L Hct (42 - 52 %) 34.0 L MCV (80.0 - 94.0 FL) 78.0 L MCH (27.0 - 31.0 PG) 25.6 L RDW (11.5 - 14.5 %) 16.5 H Plt Count (130 - 400 /CUMM) 626 H MPV (7.4 - 10.4 FL) 7.5 Gran % (42.2 - 75.2 %) 77.8 H Lymphocytes % (20.5 - 51.1 %) 12.9 L Monocytes % (1.7 - 9.3 %) 5.7 Eosinophils % (0 - 5 %) 1.9 Basophils % (0.0 - 2.0 %) 1.7 Absolute Granulocytes (1.4 - 6.5 /CUMM) 7.4 H Absolute Lymphocytes (1.2 - 3.4 /CUMM) 1.2 Absolute Monocytes (0.10 - 0.60 /CUMM) 0.5 Absolute Eosinophils (0.0 - 0.7 /CUMM) 0.2 Absolute Basophils (0.0 - 0.2 /CUMM) 0.2 PUBS MCHC (33.0 - 37.0 G/DL) 32.8 L Diagnostic Data EKG Results Sinus within normal limits. Sinus within normal limits. Sinus within normal limits. CXR Results Not done Assessment/Plan Assessment/Plan In summary this 65-year-old gentleman was admitted for elective surgery on the foot due to osteomyelitis. He has had previous frostbite injury and forefoot Dictation on the right foot prior. He came in with fever and tachycardia and there was a short he gives me no past medical history and actually has not had any prior medical care except for forefoot amputation. Duration of hypotension. Because of this troponins were evaluated which were abnormal. He has the following problems #1. Positive troponin. Most likely due to supply demand mismatch related to sepsis and hypotension. However he is a chronic smoker. It is my suspicion he might have underlying vascular disease. Do not get the impression this has been elaborately worked up in the past. I would obtain an echocardiogram. Would also start on full dose IV heparin until further decision can be made regarding cardiac intervention. If his echocardiogram shows no evidence of left radical dysfunction and he is remained stable I believe prior priority attention should be given to treating his infection and proceeding with amputation if necessary. I would also start him on low-dose beta margie namely metoprolol 12.5 mg twice a day. At sometime would also obtain an abdominal ultrasound in order to check for abdominal aortic aneurysm in this gentleman with chronic smoking history. He would definitely need a cardiac workup. The decision on priority of cardiac workup will be based on his clinical progress, echocardiogram, serial EKG or further elevation in troponin. #2 osteomyelitis and sepsis #3 chronic smoker. Would obtain a chest x-ray X #4 mild anemia probably related to sepsis next Thank you for the opportunity of participating in his care Consult Acknowledgment - Thank you for your consult request.
--- NOTE | 2016-05-19 10:54 | NUR ---
PT SITTING UP ON STRETCHER WITH NO COMPLAINTS AT PRESENT. DENIES PAIN. DENIES NEEDING ANYTHING. CIPRO IV INFUSING PER MAR, OVER 1 HOUR PER GABRIEL IN PHARMACY. LUNCH ORDERED PER REQUEST ([facility])
--- NOTE | 2016-05-19 11:10 | NUR ---
PER MOD (DANIAL), PT IS UNDER DR MONAHAN AND DOES NOT HAVE RESIDENT CARING FOR HIM. HOWEVER, MOD STATES SHE CAN BE CONTACTED FOR ANY QUESTIONS, [id number]. ALSO SPOKE WITH MOD REGARDING ORDER OF VANCOMYCIN AND DOCUMENTED ALLERGY TO SAME. PT REPORTS "DIZZINESS" WITH MEDICATION HOWEVER THEN STATES "MAYBE IT WASNT THAT ONE, ISAAC HAD SO MANY ANTIBIOTICS". NOTED IN COMPUTER THAT PT RECEIVED MED LAST NIGHT WITH NO DOCUMENTED REACTION. OK TO GIVE 1000 DOSE PER MOD
--- NOTE | 2016-05-19 11:18 | PN- Medicine Consult ---
DANIAL MASCORRO 05/19/16 1116: Assessment/Plan Assessment/Plan Assessment: Patient is a 65-year-old male with past medical history significant for recurrent foot infection, historyfrostbite, history of MSSA and group B strep osteomyelitis, history of excision and debridement of the right foot. Patient presented to the emergency department after being evaluated by the visiting nurse due to left foot discharge. After admission, troponins started to rise, cardiology consult service was requested. Dr Rito Muñiz saw the patient in am, and recommended heprin drip and metoprolol 12.5 BID. MRI shows extension of osteomyeltis Problem list: -Recurrent osteomyelitis -Hypotension most likely secondary to sepsis -Positive troponin with EKG changes Plan: -Will continue antibiotics for foot infection, narrow them down to vancomycin only and d/c ciprofloxacin, Dr. Silva is aware. He does not plan to take the patient to OR yet. -Elevated troponins due to demand ischemia, will obtain echocardiogram and start heprin drip -Will start metoprolol 12.5 BID per water hauler recommendation and hold for HR < 56 and systolic BP < 100 -will continue to follow. Problem List: 1. Osteomyelitis of foot, left, acute 2. Open wound of foot, complicated Subjective Subjective: Patient seen and examined. Had no new complains. Third set of troponins trended down however will continue heprin drip. Patient denies any chest pain, difficulty breathing, palpitations, headache, abdominal discomfort, or urinary track infection. Review of Systems Constitutional: Reports: see HPI. EENTM: Reports: see HPI. Objective Last 24 Hrs of Vital Signs/I&O Vital Signs Date Time Temp Pulse Resp B/P Pulse O2 O2 Flow FiO2 Ox Delivery Rate 05/195 98.5 63 20 130/80 95 Room Air 05/19 2006 99.3 05/19 1618 99.3 62 18 142/72 100 Room Air 05/19 1237 98.7 66 18 115/63 05/19 1226 66 18 115/63 100 Room Air 05/19 0922 98.7 67 16 113/61 99 Room Air 05/19 0629 99.2 75 18 106/61 99 Room Air 05/19 0442 99.2 70 16 111/66 05/19 0142 96.5 66 18 90/52 98 Room Air Intake & Output 05/19 1600 05/19 0800 05/19 0000 Intake Total Output Total Balance Patient 74.843 kg Weight Physical Exam General Appearance: well developed/nourished, no apparent distress, alert Head: atraumatic Neck: normal inspection, supple Cardiovascular: regular rate/rhythm Respiratory: normal breath sounds, chest non-tender, no respiratory distress Abdomen: normal bowel sounds, soft, non-tender Extremities: normal inspection Current Medications: Current Medications Sig/Efren Start time Last Medication Dose Route Stop Time Status Admin Acetaminophen 0 .STK-MED ONE 05/19 2004 DC PO Acetaminophen 650 MG Q6-PRN PRN 05/18 1815 AC 05/19 PO 2006 Ciprofloxacin 400 MG Q12 05/19 2200 AC 05/19 Dextrose/Water 200 ML IV 2148 Ciprofloxacin 400 MG BID 05/18 220 DC 05/19 IV 1053 Heparin Sodium 0 .STK-MED ONE 05/19 0533 DC (Porcine) .ROUTE Heparin Sodium 0 .STK-MED ONE 05/18 2347 DC (Porcine) .ROUTE Heparin Sodium 5,000 UNIT Q8 05/18 2200 DC 05/19 (Porcine) SC 0538 Heparin Sodium/ 25,000 UNIT Q24H 05/19 1115 AC Dextrose IV Dextrose/Water 500 ML Metolazone 12.5 MG BID 05/19 1113 DC PO Metoprolol Tartrate 12.5 MG BID 05/19 1120 AC PO Oxycodone/ 1 TAB Q4P PRN 05/18 1800 AC Acetaminophen PO Sodium Chloride 1,000 ML Q10H 05/19 0515 AC 05/19 IV 1646 Sodium Chloride 1,000 ML BOLUS ONE 05/19 0230 DC 05/19 IV 05/19 0329 0306 Sodium Chloride 1,000 ML BOLUS ONE 05/18 2315 DC 05/18 IV 05/19 0014 2358 Vancomycin HCl 1,000 MG Q12 05/18 2200 AC 05/19 Sodium Chloride 250 ML IV 2309 MARIAN NGUYEN,SUGAR 05/19/16 1342: Objective Results Last 24 Hrs Lab/Alex Results: Laboratory Tests 05/19/16 1918: Troponin I 0.26 *H 05/19/16 1255: Troponin I 0.34 *H Attending MD Review Statement Attending Sign Off Attending Cosign Statement: I have: examined this patient, reviewed [facility] EMR data, personally reviewd images, discussd w/resident/PA/STORY EDITOR, discussed mgmt plan w/mehdi, discussed mgmt plan w/pt, agreed w/resident/PA/STORY EDITOR, amended to note. Other Findings: Patient seen and examined, feels okay. Currently denies any pain. He is a 65- year-old male with past medical history significant for recurrent foot infection , history of frostbite, history of left foot skin cancer who is admitted with nonhealing left foot ulcer. MRI consistent with possible osteomyelitis. medicine was consulted for comanagement of his medical issues. Vital Signs Date Time Temp Pulse Resp B/P Pulse O2 O2 Flow FiO2 Ox Delivery Rate 05/19 1237 98.7 66 18 115/63 05/19 1226 66 18 115/63 100 Room Air 05/19 0922 98.7 67 16 113/61 99 Room Air 05/19 0629 99.2 75 18 106/61 99 Room Air 05/19 0442 99.2 70 16 111/66 05/19 0142 96.5 66 18 90/52 98 Room Air 05/18 2242 97.2 73 16 88/52 97 Room Air 05/18 2200 84/48 05/18 2045 80/48 05/18 1945 98.3 104 16 82/42 100 / 1902 99.2 05/18 1859 99.2 05/18 1815 101.0 05/18 1734 101.5 102 18 113/62 98 Room Air 05/18 1412 98.9 102 20 120/70 98 Room Air on exam; aox3, nad. cv; s1,s2, rrr. resp; clear abd; soft, nt, bs+ ext; no edema. Dressing around left foot. Laboratory Tests 05/19 05/19 05/19 05/18 05/18 1255 0646 0135 2341 2341 Chemistry Lactic Acid (0.7 - 2.1 mmol/L) 1.2 1.4 Troponin I (<0.11 ng/ml) Pending 0.54 *H 0.44 *H Assessment and recommendations. 65-year-old male with past medical history significant for recurrent foot infection, history of frostbite, history of left foot skin cancer who is admitted with nonhealing left foot ulcer. MRI consistent with possible osteomyelitis. medicine was consulted for comanagement of his medical issues. Patient also has high troponins which could be secondary to demand ischemia but he is not without risk factors. Patient has been seen by cardiology and they recommended to start the patient on low-dose beta margie as well as IV heparin. Patient to get echocardiogram. He has been started on antibiotics by podiatry. We discussed with Dr. Sargent and so far there are no plans for any surgeries or debridement. Cardiology also recommends checking an abdominal ultrasound for abdominal aortic aneurysm which can be done as an outpatient. Continue current pain management. DVT prophylaxis: Patient on heparin drip.
--- NOTE | 2016-05-19 12:15 | NUR ---
VANCOMYCIN INFUSION STARTED PER eMAR. PT IS NOT ALLERGIC TO VANCOMYCIN BUT GETS DIZZY WITH MEDICATION, PER MD PATIENT TO STILL RECEIVE THE ABX
--- NOTE | 2016-05-19 12:32 | NUR ---
SPOKE WITH MOD - STATES SHE WILL BE DOWN TO DO THE RECTAL EXAM PRIOR TO HEPARIN DRIP. LOPRESSOR PO ORDERED - B/P 115/63. PULSE 66. SPOKE WITH MOD REGARDING SAME - MED HELD AT THIS TIME.
--- NOTE | 2016-05-19 12:56 | NUR ---
REPEAT EKG DONE AND SHOWN TO HOUSESTAFF AND TROP DRAWN AND SENT TO LAB.
--- NOTE | 2016-05-19 13:03 | NUR ---
MOD IN ROOM. OUT TO NURSING STATION STATING "THE THIRD TROPONIN IS PENDING. IF IT GOES UP, START THE HEPARIN DRIP. IF ITS GOING DOWN, HE DOESNT NEED IT. PAGE ME WHEN ITS RESULTED". DR DANIAL EVANS, X 158.
--- NOTE | 2016-05-19 14:04 | NUR ---
PER MOD, SC HEPARIN WILL BE D/FABRICIO. AWAITING TROPONIN RESULT PRIOR TO HEPARIN DRIP.
--- NOTE | 2016-05-19 14:32 | NUR ---
CRITICAL TEST RESULTS [id number] NALINI CALLOWAY 65 M TESTS AND RESULTS: TROPONIN 0.34 Results received and read back by: ROSELYN TRIVEDI Results received date and time: 05/19/16 1432 The following provider was notified of the results, and read the results back: RAI EVANS ([id number]) Notified date and time: 05/19/16 at 1432
--- NOTE | 2016-05-19 14:32 | NUR ---
THIRD RESULTED TROPONIN GIVEN TO MOD - DR ANDI EVANS PER , SHE WILL SPEAK WITH DR GAONA AND CALL US BACK REGARDING HEPARIN ORDERS/DRIP
--- NOTE | 2016-05-19 15:11 | NUR ---
PER HOUSESTAFF PT CAN BE STARTED ON HEPARIN AND THAT HE IS REFUSING TO BE GUIAC AT THIS TIME. PER DR GAONA ITS OK TO BEGIN HEPARIN AT THIS TIME.
--- NOTE | 2016-05-19 15:18 | NUR ---
PT REFUSING HEPARIN INFUSION AT THIS TIME. EXPLAINED TO PT WHY THE MEDICATION IS ORDERED AND PT STILL REFUSING AT THIS TIME. MOD PAGED AT THIS TIME.
--- NOTE | 2016-05-19 15:26 | Event Note ---
Event Note Event Note: Patient refused to stool Guiac. Will go ahead and start heprin drip. Attending notified. 3.42- Patient is refusing to heprin drip. Will try to convince him again after some time.
--- NOTE | 2016-05-19 15:31 | NUR ---
DR MONAHAN AT BEDSIDE
--- NOTE | 2016-05-19 15:34 | PN- Podiatry ---
Subjective Subjective: Patient seen at bedside without any new acute complaints overnight. Patient states that he is feeling better with less nausea and no recent fevers. No significant pain in the foot. Patient is refusing IV heparin per cardiology recommendations. Objective Vital Signs and I&Os Vital Signs Date Time Temp Pulse Resp B/P Pulse O2 O2 Flow FiO2 Ox Delivery Rate 05/19 1237 98.7 66 18 115/63 05/19 1226 66 18 115/63 100 Room Air 05/19 0922 98.7 67 16 113/61 99 Room Air 05/19 0629 99.2 75 18 106/61 99 Room Air 05/19 0442 99.2 70 16 111/66 05/19 0142 96.5 66 18 90/52 98 Room Air 05/18 2242 97.2 73 16 88/52 97 Room Air 05/18 2200 84/48 05/18 2045 80/48 05/18 1945 98.3 104 16 82/42 100 05/18 1902 99.2 05/18 1859 99.2 05/18 1815 101.0 05/18 1734 101.5 102 18 113/62 98 Room Air Intake & Output 05/19 1600 05/19 0800 05/19 0000 05/18 1600 05/18 0800 05/18 0000 Intake Total Output Total 250 Balance -250 Output, Urine 250 Patient 165 lb Weight Physical Exam: Persistent drainage and erythema to the left foot. Minimal pain with palpation. Assessment/Plan Assessment/Plan Left foot osteomyelitis. I had a lengthy discussion with the patient at bedside regarding the long-term prospects for salvaging the left foot. Patient understands that he would likely do better with a primary transtibial amputation and is amenable. May need cardiac clearance prior to amputation. We will consult the vascular service. Core Measures/Miscellaneous Venous Thromboembolism VTE Risk Factors: Age > 40 VTE Contraindications: No Contraindications VTE Prophylaxis Ordered Inpt: Pharm- Heparin VTE Diagnosis: No Beta Tiago Is Beta Tiago a Home Med? Yes Antibiotics Is Patient on Antibiotics? Yes If Yes: infection Attending MD Review Statement Attending Statement Attending MD Statement: examined this patient
--- NOTE | 2016-05-19 15:42 | NUR ---
MOD AWARE PT REFUSED HEPARIN AT THIS TIME.
--- NOTE | 2016-05-19 16:47 | NUR ---
PT REMAINS RESTING ON STRETCHER, STATES HE FEELS SLIGHT "TWINGES" IN FOOT OCCASIONALLY BUT DENIES ANY PAIN. NS INFUSING AT 100ML/HR AT THIS TIME PER ORDER.
--- NOTE | 2016-05-19 17:02 | NUR ---
PT AWARE HE WILL GO FOR ULTRASOUND OF LOWER EXTREMITIY.
--- NOTE | 2016-05-19 17:46 | NUR ---
PT TO US AT THIS TIME.
--- NOTE | 2016-05-19 19:23 | NUR ---
REPEAT EKG DONE AND REPEAT TROP DRAWN AND SENT TO LAB.
--- NOTE | 2016-05-19 19:58 | NUR ---
PT PUT OUTSIDE PARTS SALESMAN GARNICA, BLEEDING BRIGHT RED BLOOD NOTED TO L FOOT DRESSING. PT REPORTS HE HIT IT GETTING UP TO USE COMMODE. PT DRESSING REMOVED. L FOOT WHERE GREAT TOE AND 1ST TOE WOULD BE APPEARS MASCERATED, DRY SKIN, NACROTIC AREA. ALSO TO LATERAL SIDE OF L FOOT OPEN AREA WITH NECROTIC OUTER AREA. CLEANSED AND NEW DRESSING APPLIED.
--- NOTE | 2016-05-19 20:06 | NUR ---
PT REQUESTED TYLENOL.
--- NOTE | 2016-05-19 21:02 | NUR ---
CRITICAL TEST RESULTS [id number] NALINI CALLOWAY 65 M TESTS AND RESULTS: TROPONIN 0.26 Results received and read back by: RUSS CARBAJAL Results received date and time: 05/19/162101 The following provider was notified of the results, and read the results back: RAI KENDALL Notified date and time: 05/19/16 at 2101
--- NOTE | 2016-05-19 21:05 | NUR ---
MOD ALSUBAIT RETURNED PAGE. CRITICAL VALUE TROPONIN RELAYED TO MOD. NO NEW ORDERS STATED BY ALSUBAIT.
[2016-05-19 22:25] VITALS: BP 130/80
--- NOTE | 2016-05-19 22:53 | NUR ---
PT ALERT AND ORIENTED X 3. VSS. CIPRO RUNNING AD ORDERED. NO C/O PAIN. DRESSING TO LEFT FOOT CDI.
--- NOTE | 2016-05-19 22:57 | NUR ---
PT REFUSED SCHEDULED LOPRESSOR. MD ERNST AWARE. BP- 130/80 P-65
--- NOTE | 2016-05-20 00:05 | NUR ---
HOUSESTAFF AWARE OF FREQUENCY OF TROP DRAWS. WE ARE NOT DOING ANYTHING WITH THHE POSITIVE RESULTS IN PAST, PT HAS REFUSED HEPARIN. WHY THEN THE FREQUENCY, PT IS UPSET ABOUT FREQUENCY OF BLOOD DRAWA. PER DR FRANCISCO, WILL CHANGE ORDER.
--- NOTE | 2016-05-20 03:59 | NUR ---
PT HAD REFUSED 0000 LABS NO NEW ORDERS, WILL CONT TO MONITOR DENEIS CO AT THIS TIME OCCAS AWAKE FOR URINAL./ DENIES PAIN AT PRESENT. ? OR THIS AM. WILL CONTINUE TO MONITOR.
[2016-05-20 06:38] VITALS: BP 136/65
--- NOTE | 2016-05-20 07:36 | PN- Medicine Consult ---
DANIAL MASCORRO 05/20/16 0736: Assessment/Plan Assessment/Plan Assessment: Patient is a 65-year-old male with past medical history significant for recurrent foot infection, history of frostbite, history of MSSA and group B strep osteomyelitis, history of excision and debridement of the right foot. Patient presented to the emergency department after being evaluated by the visiting nurse due to left foot discharge. After admission, troponins started to rise, cardiology consult service was requested. Dr Rito Muñiz saw the patient in am, and recommended heprin drip and metoprolol 12.5 BID. MRI shows extension of osteomyeltis Problem list: -Recurrent osteomyelitis -Hypotension most likely secondary to sepsis -Positive troponin with EKG changes Plan: -Will continue antibiotics for foot infection, narrow them down to vancomycin only and d/c ciprofloxacin, Dr. Silva is aware. Patient is NPO for a possible transtibial amputation procedure in am. Patient was made NPO by dr. Silva last night RCRI index shows a class 2 risk with 0.9 % of Major cardiac event. -Elevated troponins due to demand ischemia, will f/up echocardiogram - Patient refused to stool guiac and heprin drip yesterday, troponins trending down. Cardiology consult service on board -Will start metoprolol 12.5 BID per wildlife removal specialist recommendation and hold for HR < 56 and systolic BP < 100 -will continue to follow. Subjective Subjective: Patient seen and examined. Refusing to heprin drip. Denies any Chest pain, SOB, headache, dizziness. No new complains Objective Last 24 Hrs of Vital Signs/I&O Vital Signs Date Time Temp Pulse Resp B/P Pulse O2 O2 Flow FiO2 Ox Delivery Rate 05/22 2346 97.8 88 18 138/72 97 Room Air 05/22 2104 71 138/72 05/22 2040 71 138/72 05/22 1540 98.6 67 18 142/74 97 05/22 1020 181 128/70 05/22 0822 97.9 63 16 139/70 96 Room Air Intake & Output 05/23 0800 05/23 0000 05/22 1600 Intake Total 940 1340 1000 Output Total 1628 083 8425 Balance -860 490 -25 Intake, IV 700 800 Intake, Oral 354 463 3926 Output, Urine 5126 188 0209 Physical Exam General Appearance: well developed/nourished, no apparent distress, alert Respiratory: normal breath sounds, chest non-tender Abdomen: normal bowel sounds, soft, non-tender Extremities: left lower ext covered in bandage, refused to further examination Current Medications: Current Medications Sig/Efren Start time Last Medication Dose Route Stop Time Status Admin Acetaminophen 650 MG .STK-MED ONE 05/22 1623 DC PO 05/22 1624 Acetaminophen 650 MG Q6-PRN PRN 05/18 1815 AC 05/22 PO 1627 Aspirin 81 MG DAILY 05/23 1000 AC PO Heparin Sodium 5,000 UNIT Q8 05/22 2200 AC 05/23 (Porcine) SC 0613 Heparin Sodium/ 25,000 UNIT Q24H 05/19 1115 DC Dextrose IV Dextrose/Water 500 ML Metoprolol Tartrate 12.5 MG BID 05/19 1120 AC 05/23 PO 0846 Oxycodone/ 1 TAB Q4P PRN 05/18 1800 AC Acetaminophen PO Patient Medication 1 UNIT ONE NR 05/22 2100 DC Teaching ED 05/22 2130 Sodium Chloride 1,000 ML Q10H 05/19 0515 AC 05/23 IV 0152 Results Last 24 Hrs Lab/Alex Results: Laboratory Tests 05/23/16 0916: Anion Gap 11, Estimated GFR > 60, BUN/Creatinine Ratio 11.1, Triglycerides 195 H, Cholesterol 163, LDL Cholesterol, Calc 92, HDL Cholesterol 32 L, Cholesterol /HDL Ratio 5 H, CBC w Diff NO MAN DIFF REQ, RBC 3.30 L, MCV 78.3 L, MCH 25.5 L, RDW 16.3 H, MPV 8.1, Gran % 76.6 H, Lymphocytes % 16.1 L, Monocytes % 4.7, Eosinophils % 2.0, Basophils % 0.6, Absolute Granulocytes 6.1, Absolute Lymphocytes 1.3, Absolute Monocytes 0.4, Absolute Eosinophils 0.2, Absolute Basophils 0, PUBS MCHC 32.6 L MARIAN NGUYEN,[facility] 05/20/16 1127: Attending MD Review Statement Attending Sign Off Attending Cosign Statement: I have: examined this patient, reviewed al EMR data, personally reviewd images, discussd w/resident/PA/SALES REPRESENTATIVE DOOR TO DOOR, discussed mgmt plan w/mehdi, discussed mgmt plan w/pt, agreed w/resident/PA/SALES REPRESENTATIVE DOOR TO DOOR, amended to note. Other Findings: Patient seen and examined, offers no complaints. He refused heparin drip yesterday. He did not give me the reason why he refused the heparin. Vital Signs Date Time Temp Pulse Resp B/P Pulse O2 O2 Flow FiO2 Ox Delivery Rate 05/20 1115 73 136/65 05/20 0638 98.0 73 20 136/65 97 Room Air 05/19 2225 98.5 63 20 130/80 95 Room Air 05/19 2006 99.3 05/19 1618 99.3 62 18 142/72 100 Room Air 05/19 1237 98.7 66 18 115/63 05/19 1226 66 18 115/63 100 Room Air on exam; aox3, nad. cv; s1,s2, rrr. resp; clear abd; soft, nt, bs+ ext; no edema skin; dressing on left foot Laboratory Tests 05/19 05/19 1918 1255 Chemistry Troponin I (<0.11 ng/ml) 0.26 *H 0.34 *H Assessment and recommendations. 65-year-old male with past medical history significant for recurrent foot infection, history of frostbite, history of left foot skin cancer who is admitted with nonhealing left foot ulcer. MRI consistent with possible osteomyelitis. medicine was consulted for comanagement of his medical issues. Patient also has high troponins which could be secondary to demand ischemia but he is not without risk factors. Currently needs cardiology clearance. Echo results are pending. Patient continues to refuse heparin. He was not that interested in surgery either but wants to discuss with Dr. Sargent. She has been getting antibiotics IV vancomycin. He is refusing the lab draws as well as other medications also. Continue current pain management. If patient continues to refuse heparin drip, will start him back on heparin subcutaneous for DVT prophylaxis. Surgery plans up to Dr. Sargent
--- NOTE | 2016-05-20 08:33 | ULTRASOUND REPORT ---
EXAMINATION: US-LEFT LOW EXTR ARTERIAL DOP CLINICAL INFORMATION: Infection in the left foot on antibiotics for 2 days. COMPARISON: None TECHNIQUE: Real-time ultrasound and Doppler techniques (integrating B-mode 2-D vascular images, Doppler spectral analysis and color flow Doppler imaging) were utilized to interrogate the left lower extremity arteries. FINDINGS: Left lower extremity: Common femoral artery: 122 cm/sec; triphasic waveform Superficial femoral artery proximal: 151 cm/sec; triphasic waveform Superficial femoral artery mid portion: 127 cm/sec; triphasic waveform Superficial femoral artery distal: 119 cm/sec; triphasic waveform Profunda artery: 84 cm/sec; triphasic waveform Popliteal artery: 217 cm/sec; triphasic waveform Posterior tibial artery: 79 cm/sec; monophasic waveform Anterior tibial artery: 88 cm/sec; triphasic waveform Dorsalis pedis artery: Unable to be assessed due to bandaging. ADDITIONAL FINDINGS: None. IMPRESSION: No evidence of hemodynamically significant peripheral arterial disease. Greater sensitivity and specificity can be obtained with pre-and post exercise PVRs with VETO calculations. Also consider dedicated CTA for further anatomical detail.
--- NOTE | 2016-05-20 09:23 | NUR ---
BREAKFAST TRAY ORDERED WITH DINING SERVICES. EGGS, COFFEE, BLUEBERRY MUFFIN
--- NOTE | 2016-05-20 11:09 | NUR ---
PT HAS BED ASSIGNMENT 181. ROOM NOT READY.
--- NOTE | 2016-05-20 12:18 | NUR ---
PER FLOOR ROOM IS READY.
[2016-05-20 15:13] VITALS: BP 132/70
--- NOTE | 2016-05-20 15:36 | Cons- Vascular Surgery ---
General Information and HPI Consulting Request Date of Consult: 05/20/16 Requested By: ZENA MONAHAN DPM History of Present Illness: 65-year-old gentleman who as a teenager suffered bilateral feet frostbite presents for recurrent left foot osteomyelitis and cellulitis of the left leg. He is status post successful right TMA. 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 Unfortunately, his left high TMA has presented with osteomyelitis. MRI of the foot confirmed presence of osteomyelitis. The patient was admitted to the hospital and was started on IV antibiotics. Given the previous level of amputation and presence of osteomyelitis with purulence, Dr. Monahan has asked the vascular surgery service to evaluate the patient and perform major amputation. Allergies/Medications Allergies: Coded Allergies: Penicillins (Intermediate, ANAPHYLAXIS 03/24/16) vancomycin (Mild, DIZZINESS 05/20/16) nut - unspecified (05/20/16) Uncoded Allergies: CLEANING PRODUCTS (Severe, ANAPHYLAXIS 08/21/15) Home Med List: No Known Home Medications Past History Medical History Blood Transfusion Hx: No Neurological: NONE EENT: NONE Cardiovascular: NONE Respiratory: NONE Gastrointestinal: APPENDECTOMY Hepatic: NONE Renal: NONE Musculoskeletal: NANNETTE TOE AMPUTATIONS SKIN CANCER OF FEET FROSTBITE Psychiatric: NONE Endocrine: NONE Blood Disorders: NONE Cancer(s): SKIN CANCER EDUCATIONAL RESOURCE COORDINATOR/Reproductive: NONE Other Medical Hx: FROSTBITE FEET. Surgical History Pertinent Surgical History: 12 FOOT SURGERIES APPENDECTOMY Family History Relations & Conditions If Any: Relation not specified for: *No pertinent family history Psychosocial History Where Do You Live? Home Who Do You Live With? 2 sons Services at Home: Nursing Primary Language: Armenian Smoking Status: Current Everyday Smoker ETOH Use: denies use Illicit Drug Use: denies illicit drug use Functional Ability ADLs Independent: dressing, eating, toileting, bathing. Ambulation: independent IADLs Independent: shopping, housework, finances, food prep, telephone, transportation , medication admin. Review of Systems Review of Systems: Patient denies headache, dizziness, cough, palpitation, diarrhea or constipation Exam & Diagnostic Data Vital Signs and I&O Vital Signs Date Time Temp Pulse Resp B/P Pulse O2 O2 Flow FiO2 Ox Delivery Rate 05/20 1513 98.6 76 20 132/70 98 Room Air 05/20 1115 73 136/65 05/20 0638 98.0 73 20 136/65 97 Room Air 05/19 2225 98.5 63 20 130/80 95 Room Air 05/19 2005 99.3 05/19 1618 99.3 62 18 142/72 100 Room Air Intake & Output 05/20 1600 05/20 0000 05/19 1600 05/19 0000 Intake Total 1000 120 Output Total 850 1600 Balance -850 -600 120 Intake, IV 1000 Intake, Oral 120 Output, Urine 850 1600 Patient 165 lb 165 lb Weight Physical Exam: Patient is alert and oriented 3. Cardiovascular: Regular Lungs: Clear to auscultation bilaterally Abdomen: Soft, nontender nondistended Extremities: There is palpable left dorsalis pedis and posterior tibial pulses. The left TMA is open and there is purulence. There is discoloration of the left leg consistent with cellulitis. Assessment/Plan Assessment/Plan 65-year-old man with left TMA recurrent osteomyelitis and infection as well as left leg cellulitis. Given the recurrent nature of the osteomyelitis and infection of the left TMA stump I think the patient will benefit from below knee amputation. Given his vascular exam, he should have adequate blood supply to heal the below-knee amputation. Apparently, cardiology service is following the patient for management and risk stratification. Once there is significant improvement in the cellulitis, left BKA will be performed. The patient is tentatively on the OR schedule for Monday if he is okay to undergo such procedure by cardiology. Thank you for asking me to be involved in the care of this patient. Consult Acknowledgment - Thank you for your consult request.
--- NOTE | 2016-05-20 16:27 | PN- Cardiology ---
Subjective Subjective: The patient is resting comfortably and denies any chest pain, dyspnea, or palpitations. He apparently refused heparin drip initiation yesterday. Objective Vital Signs and I&Os Vital Signs Date Time Temp Pulse Resp B/P Pulse O2 O2 Flow FiO2 Ox Delivery Rate 05/20 1513 98.6 76 20 132/70 98 Room Air 05/20 1115 73 136/65 05/20 0638 98.0 73 20 136/65 97 Room Air 05/19 2225 98.5 63 20 130/80 95 Room Air 05/19 2005 99.3 05/19 1618 99.3 62 18 142/72 100 Room Air Intake & Output 05/20 1600 05/20 0800 05/20 0000 05/19 1600 05/19 0800 05/19 0000 Intake Total 340 1000 120 Output Total 1350 1600 Balance -1010 -600 120 Intake, IV 100 1000 Intake, Oral 240 120 Output, Urine 1350 1600 Patient 165 lb 165 lb Weight Physical Exam: General: no apparent distress. Alert. Eyes: No obvious scleral icterus. HEENT: No jugular venous distention or abnormal jugular venous pulsations. Cardiovascular: Normal intensity S1/S2. PMI not grossly displaced. Respiratory: No rales or rhonchi Abdomen: Soft, nontender with no guarding or rebound tenderness. Musculoskeletal: No cyanosis noted, prior amputation with dressing. poor distal pulses. Skin: Warm. Current Medications: Current Medications Sig/Efren Start time Last Medication Dose Route Stop Time Status Admin Acetaminophen 0 .STK-MED ONE 05/19 2003 DC PO Acetaminophen 650 MG Q6-PRN PRN 05/18 1815 AC 05/19 PO 2006 Ciprofloxacin 400 MG Q12 05/19 2199 DC 05/19 Dextrose/Water 200 ML IV 2148 Ciprofloxacin 400 MG BID 05/18 220 DC 05/19 IV 1053 Heparin Sodium/ 25,000 UNIT Q24H 05/19 1115 AC Dextrose IV Dextrose/Water 500 ML Metoprolol Tartrate 12.5 MG BID 05/19 1120 AC PO Oxycodone/ 1 TAB Q4P PRN 05/18 1800 AC Acetaminophen PO Sodium Chloride 1,000 ML Q10H 05/19 0515 AC 05/20 IV 1300 Vancomycin HCl 1,000 MG Q12 05/18 2200 AC 05/20 Sodium Chloride 250 ML IV 1116 Results Last 48 Hrs of Labs/Mics: Laboratory Tests 05/19/16 1918: Troponin I 0.26 *H 05/19/16 1255: Troponin I 0.34 *H 05/19/16 0646: Troponin I 0.54 *H 05/19/16 0135: Lactic Acid 1.2 05/18/16 2341: Troponin I 0.44 *H 05/18/16 2341: Lactic Acid 1.4 Recent Imaging Studies: Lower extremity duplex IMPRESSION: No evidence of hemodynamically significant peripheral arterial disease. Greater sensitivity and specificity can be obtained with pre-and post exercise PVRs with VETO calculations. Also consider dedicated CTA for further anatomical detail. Assessment/Plan Assessment/Plan 1. Elevated troponins likely due to demand ischemia 2. Osteomyelitis/sepsis 3. History of squamous cell carcinoma 4. Mild anemia 5. Hypertension, improved 6. Nicotine dependent The patient denies any chest pain, dyspnea, or palpitations. The relatively flat troponin curve is more suggestive of demand ischemia. He did refuse IV heparin yesterday and at this time I don't think there is much benefit to initiating IV heparin from a cardiac standpoint. I would recommend starting on aspirin 81mg by mouth daily and empiric statin therapy after checking a baseline lipid panel. Additional preoperative cardiac risk stratification will be based on clinical course and echocardiogram results. Continue on low-dose beta margie. Javier Rosen MD [facility] Continue telemetry? Yes
--- NOTE | 2016-05-20 17:12 | PN- Podiatry ---
Subjective Subjective: Patient seen at bedside without any new acute complaints. Patient denies nausea vomiting fever chills. Left foot pain well managed with by mouth analgesics. Objective Vital Signs and I&Os Vital Signs Date Time Temp Pulse Resp B/P Pulse O2 O2 Flow FiO2 Ox Delivery Rate 05/20 1513 98.6 76 20 132/70 98 Room Air 05/20 1115 73 136/65 05/20 0638 98.0 73 20 136/65 97 Room Air 05/19 2225 98.5 63 20 130/80 95 Room Air 05/19 2006 99.3 Intake & Output 05/20 1600 05/20 0800 05/20 0000 05/19 1600 05/19 0800 05/19 0000 Intake Total 340 1100 120 Output Total 1350 1600 Balance -1010 -500 120 Intake, IV 100 1100 Intake, Oral 240 0 120 Number 0 Bowel Movements Output, Urine 1350 1600 Patient 165 lb 165 lb Weight Physical Exam: Dressing left foot clean dry and intact. No pain with deep palpation bilateral lower extremity's. Assessment/Plan Assessment/Plan Left foot cellulitis with underlying osteomyelitis. The patient to be scheduled for below knee amputation pending echocardiogram and risk stratification from cardiology. Core Measures/Miscellaneous Venous Thromboembolism VTE Risk Factors: Age > 40 VTE Contraindications: No Contraindications VTE Prophylaxis Ordered Inpt: Pharm- Heparin VTE Diagnosis: No Beta Tiago Is Beta Tiago a Home Med? Yes Antibiotics Is Patient on Antibiotics? Yes If Yes: infection Attending MD Review Statement Attending Statement Attending MD Statement: examined this patient
[2016-05-20 22:00] VITALS: BP 132/68
[2016-05-21 08:19] VITALS: BP 122/60
--- NOTE | 2016-05-21 13:11 | PN- Podiatry ---
Subjective Subjective: Patient seen at bedside without any new acute complaints. Patient denies nausea vomiting fever chills. Patient states that his foot pain is well-controlled with by mouth analgesics. Objective Vital Signs and I&Os Vital Signs Date Time Temp Pulse Resp B/P Pulse O2 O2 Flow FiO2 Ox Delivery Rate 05/21 927 122/60 05/21 818 98.2 70 18 122/60 98 Room Air 05/20 2200 98.6 71 18 132/68 97 Room Air 05/20 2056 71 132/68 05/20 1513 98.6 76 20 132/70 98 Room Air Intake & Output 05/21 1600 05/21 0805/21 0000 05/20 1600 05/20 0800 05/20 0000 Intake Total 920 3726 317 3158 120 Output Total 920 1450 1350 1600 Balance 0 0 -1010 -500 120 Intake, IV 800 1400 709 7821 Intake, Oral 120 450 240 0 120 Number 0 Bowel Movements Output, Urine 920 1450 1350 1600 Patient 165 lb Weight Physical Exam: Persistent edema and cellulitis to the left lower extremity. Considerable drainage noted to the medial wound left foot. Assessment/Plan Assessment/Plan Recalcitrant osteomyelitis left foot with left lower extremity cellulitis. Pending the echocardiogram and cardiac risk stratification, the patient may benefit from a left foot washout to optimize soft tissues in anticipation of a below-knee amputation. Core Measures/Miscellaneous Venous Thromboembolism VTE Risk Factors: Age > 40 VTE Contraindications: No Contraindications VTE Prophylaxis Ordered Inpt: Pharm- Heparin VTE Diagnosis: No Beta Tiago Is Beta Tiago a Home Med? Yes Antibiotics Is Patient on Antibiotics? Yes If Yes: infection Attending MD Review Statement Attending Statement Attending MD Statement: examined this patient
--- NOTE | 2016-05-21 13:42 | PN- Att Addend ---
Attending Addendum Attending Brief Note Patient seen and examined. Plan of care discussed with the medical team and the patient. Available lab work and radiology test reports were reviewed. Patient appears comfortable and denies any new complaints. Vital Signs Date Time Temp Pulse Resp B/P Pulse O2 O2 Flow FiO2 Ox Delivery Rate 05/21 0828 122/60 05/21 08 98.2 70 18 122/60 98 Room Air 05/20 2200 98.6 71 18 132/68 97 Room Air 05/20 2056 71 132/68 05/20 1513 98.6 76 20 132/70 98 Room Air Intake & Output 05/21 1600 05/21 0800 05/21 0000 Intake Total 920 1450 Output Total 920 1450 Balance 0 0 Intake, IV 800 1000 Intake, Oral 120 450 Output, Urine 920 1450 Exam: General: Patient awake alert oriented without any distress CVS: S1 plus S2 without any murmur or gallops Chest: Few scattered crepitation without any wheeze. There is no respiratory distress. Abdomen: Soft nontender, bowel sound present, no guarding or rebound PATROL DRIVER: Awake alert oriented without any focal neuro deficit and follows command appropriately Extremities: No edema; no clubbing or cyanosis noted; both feet are under heavy dressing which was not opened. No new labs done today. Assessment and problem list * Nonhealing left foot ulcer * Suspected ostium myelitis * Positive troponin likely demand ischemia Plan * Waiting for cardiology clearance for below knee amputation early next week * Continue current management plan * Continue IV antibiotics
[2016-05-21 17:49] VITALS: BP 125/73
[2016-05-21 22:40] VITALS: BP 112/63
[2016-05-22 08:22] VITALS: BP 139/70
--- NOTE | 2016-05-22 10:01 | PN- Podiatry ---
Subjective Subjective: Patient denies nausea vomiting fever chills. Patient admits to some mild left foot pain. Objective Vital Signs and I&Os Vital Signs Date Time Temp Pulse Resp B/P Pulse O2 O2 Flow FiO2 Ox Delivery Rate 05/22 821 97.9 63 16 139/70 96 Room Air 05/21 2240 98.4 71 18 112/63 97 Room Air 05/21 2158 74 118/60 05/21 1749 98.9 64 17 125/73 97 Room Air Intake & Output 05/22 1600 05/22 0000 05/21 1600 05/21 0000 Intake Total 800 1200 9887 998 7261 Output Total 1050 550 964 458 2012 Balance -250 650 500 0 0 Intake, IV 800 800 839 138 0919 Intake, Oral 400 400 120 450 Number 1 Bowel Movements Output, Urine 1050 550 282 094 2071 Physical Exam: Persistent edema and cellulitis noted left lower extremity. Necrotic wound noted to the medial left foot with some drainage identified. Central probing identified. Wound bed noted to be necrotic with overlying slough. Assessment/Plan Assessment/Plan Sepsis with left lower extremity cellulitis and osteomyelitis. We'll DC the vancomycin hopes of identifying the true pathogen with culture to be harvested on Monday. Core Measures/Miscellaneous Venous Thromboembolism VTE Risk Factors: Age > 40 VTE Contraindications: No Contraindications VTE Prophylaxis Ordered Inpt: Pharm- Heparin VTE Diagnosis: No Beta Tiago Is Beta Tiago a Home Med? Yes Antibiotics Is Patient on Antibiotics? Yes If Yes: infection Attending MD Review Statement Attending Statement Attending MD Statement: examined this patient
--- NOTE | 2016-05-22 12:43 | PN- Att Addend ---
Attending Addendum Attending Brief Note Patient seen and examined. Plan of care discussed with the medical team and the patient. Available lab work and radiology test reports were reviewed. Patient appears comfortable and denies any new complaints. Vital Signs Date Time Temp Pulse Resp B/P Pulse O2 O2 Flow FiO2 Ox Delivery Rate 05/22 1020 181 128/70 05/22 0822 97.9 63 16 139/70 96 Room Air 05/21 2240 98.4 71 18 112/63 97 Room Air 05/21 2158 74 118/60 05/21 1749 98.9 64 17 125/73 97 Room Air Intake & Output 05/22 1600 05/22 0800 05/22 0000 Intake Total 800 1200 Output Total 1050 550 Balance -250 650 Intake, IV 800 800 Intake, Oral 400 Number 1 Bowel Movements Output, Urine 1050 550 Exam: General: Patient awake alert oriented without any distress CVS: S1 plus S2 without any murmur or gallops Chest: Few scattered crepitation without any wheeze. There is no respiratory distress. Abdomen: Soft nontender, bowel sound present, no guarding or rebound BOARD HANDLER: Awake alert oriented without any focal neuro deficit and follows command appropriately Extremities: No edema; no clubbing or cyanosis noted; both feet are under heavy dressing which was not opened. No new labs done today. Assessment and problem list * Nonhealing left foot ulcer * Suspected ostium myelitis * Positive troponin likely demand ischemia Plan * Waiting for cardiology clearance for OR early next week; based on notes from podiatry patient will be taken for debridement and biopsy first. * Continue current management plan * As per podiatry antibiotics been discontinued
[2016-05-22 15:40] VITALS: BP 142/74
--- NOTE | 2016-05-22 18:03 | ECHOCARDIOGRAM REPORT ---
NALINI CALLOWAY Age: 65 : 1950 Gender: M Exam Date: 05/22/2016 09:02 Exam Location: [facility] Ht (in): 69 Wt (lb): 165 BSA: 1.92 BP: 112 / 63 Ordering Physician: DANIAL MASCORRO MD Referring Physician: Mulugeta Rosen M.D. Technologist: Valerie Freitas RDCS Room Number: [id number] Indications: HYPOTENSION Rhythm: Sinus Technical Quality: fair FINDINGS Left Ventricle Normal global left ventricular size, wall thickness, systolic function with no obvious regional wall motion abnormalities. Normal left ventricular ejection fraction estimated at 60-65%. Right Ventricle Normal right ventricular size and function. Right Atrium Normal right atrial size. Left Atrium Left atrial size at the upper limits of normal. Mitral Valve Mitral valve normal in structure and function. Trace mitral regurgitation. Aortic Valve Aortic valve is normal in structure and function. Tricuspid Valve Tricuspid valve is normal in structure and function. Trace to mild tricuspid regurgitation. Right ventricular systolic pressure estimated to be within the normal range at 25 mmHg. Pulmonic Valve Pulmonic valve not well visualized, grossly normal. Pericardium Normal pericardium. Great Vessels Normal size aortic root. CONCLUSIONS Normal left and right ventricular systolic function. No significant valvular abnormalities noted. Rito Dan M.D. (Electronically Signed) Final Date: 22 May 2016 18:02 MEASUREMENTS (Male / Female) Normal Values 2D ECHO LV Diastolic Diameter PLAX 4.1 cm 4.2 - 5.9 / 3.9 - 5.3 cm LV Systolic Diameter PLAX 2.6 cm 2.1 - 4.0 cm LV Fractional Shortening PLAX 36.6 % 25 - 46 % LV Ejection Fraction 2D Teich 66.8 % IVS Diastolic Thickness 1.0 cm LVPW Diastolic Thickness 1.2 cm LV Relative Wall Thickness 0.5 RV Internal Dim ED PLAX 2.7 cm 1.9 - 3.8 cm LVOT Diameter 2.2 cm Aortic Root Diameter 3.7 cm LA Systolic Diameter LX 3.7 cm 3.0 - 4.0 / 2.7 - 3.8 cm LA Volume 50.0 cm 18 - 58 / 22 - 52 cm Ascending Aorta Diameter 3.3 cm DOPPLER AV Peak Velocity 148.0 cm/s AV Peak Gradient 8.8 mmHg AV Mean Velocity 106.0 cm/s AV Mean Gradient 5.0 mmHg AV Velocity Time Integral 32.3 cm LVOT Peak Velocity 141.0 cm/s LVOT Peak Gradient 8.0 mmHg LVOT Mean Velocity 86.7 cm/s LVOT Mean Gradient 4.0 mmHg LVOT Velocity Time Integral 26.6 cm LVOT Stroke Volume 101.1 cm AV Area Cont Eq vti 3.1 cm AV Area Cont Eq pk 3.6 cm MV Peak Velocity 112.0 cm/s MV Peak Gradient 5.0 mmHg MV Mean Velocity 68.8 cm/s MV Mean Gradient 2.0 mmHg Mitral E Point Velocity 98.7 cm/s Mitral A Point Velocity 92.3 cm/s Mitral E to A Ratio 1.1 MV PHT Velocity 117.0 cm/s MV Deceleration [place] 439.0 cm/s MV Pressure Half Time 80.0 ms MV Area PHT 2.8 cm MV Deceleration Time 283.0 ms TR Peak Velocity 228.0 cm/s TR Peak Gradient 20.8 mmHg Right Atrial Pressure 5.0 mmHg Pulmonary Artery Systolic Pressu 25.8 mmHg Right Ventricular Systolic Press 25.8 mmHg PV Peak Velocity 150.0 cm/s PV Peak Gradient 9.0 mmHg PV Mean Velocity 94.3 cm/s PV Mean Gradient 4.0 mmHg PV Velocity Time Integral 27.8 cm LV E' Lateral Velocity 15.0 cm/s Mitral E to LV E' Lateral Ratio 6.6 LV E' Septal Velocity 10.3 cm/s Mitral E to LV E' Septal Ratio 9.6
[2016-05-22 20:40] VITALS: BP 138/72
--- NOTE | 2016-05-22 20:47 | NUR ---
HEPARIN DRIP ORDER IS STILL ACTIVE. PT HAD BEEN REFUSING. THIS AFTERNOON PT STATED HE IS WILLING TO TAKE IT IF STILL NEEDED. CALL OUT TO . PER HE WILL DC IV HEPARIN AND START SUB-CUTE HEPARIN.
[2016-05-22 23:46] VITALS: BP 138/72
--- NOTE | 2016-05-23 07:42 | PN- Medicine Consult ---
DANIAL MASCORRO 05/23/16 0741: Assessment/Plan Assessment/Plan Assessment: Patient is a 65-year-old male with past medical history significant for recurrent foot infection, history of frostbite, history of MSSA and group B strep osteomyelitis, history of excision and debridement of the right foot. Patient presented to the emergency department after being evaluated by the visiting nurse due to left foot discharge. After admission, troponins started to rise, cardiology consult service was requested. Dr Rito Muñiz saw the patient in am, and recommended heprin drip and metoprolol 12.5 BID. MRI shows extension of osteomyeltis Problem list: -Recurrent osteomyelitis -Hypotension most likely secondary to sepsis -Positive troponin with EKG changes - Cardiac clearence for BKA Plan: - Patient is monitored off antibiotics. -awaiting cardiac clearence for left foot washout followed by Below knee amputation. RCRI index shows a class 2 risk with 0.9 % of Major cardiac event. Echocardiogram shows normal systolic and diastolic function. -Patient had elevated troponins but he refused to heprin drip and given the downward trend of his troponins, it was decided to keep him off the drip. - We will continue metoprolol 12.5 BID per tool trouble shooter recommendation and hold for HR < 56 and systolic BP < 100 -Patient started ob Aspirin 81 mg - Will follow up Lipid panel and start him on a statin -will continue to follow. Subjective Subjective: Patient seen and examined. Refused to aspirin Po this am, wants to talk to tool trouble shooter about it. repeat CBC at 6pm due to rapid drop in HB. Review of Systems Constitutional: Reports: see HPI. Objective Last 24 Hrs of Vital Signs/I&O Vital Signs Date Time Temp Pulse Resp B/P Pulse O2 O2 Flow FiO2 Ox Delivery Rate 05/23 0846 137/79 05/23 0822 97.8 69 16 137/79 96 Room Air 05/22 2346 97.8 88 18 138/72 97 Room Air 05/22 2104 71 138/72 05/22 2040 71 138/72 05/22 1540 98.6 67 18 142/74 97 05/22 1020 181 128/70 Intake & Output 05/23 1600 05/23 0800 05/23 0000 Intake Total 940 1340 Output Total 1800 850 Balance -860 490 Intake, IV 700 800 Intake, Oral 240 540 Output, Urine 1800 850 Physical Exam General Appearance: well developed/nourished, no apparent distress, alert Head: atraumatic, normal appearance Neck: normal inspection, supple Respiratory: normal breath sounds Abdomen: normal bowel sounds, soft, non-tender Extremities: left foot covered with bandage, patient refused to further examination Current Medications: Current Medications Sig/Efren Start time Last Medication Dose Route Stop Time Status Admin Acetaminophen 650 MG .STK-MED ONE 05/22 1623 DC PO 05/22 1624 Acetaminophen 650 MG Q6-PRN PRN 05/18 1815 AC 05/22 PO 1627 Aspirin 81 MG DAILY 05/23 1000 AC PO Heparin Sodium 5,000 UNIT Q8 05/22 2200 AC 05/23 (Porcine) SC 0613 Heparin Sodium/ 25,000 UNIT Q24H 05/19 1115 DC Dextrose IV Dextrose/Water 500 ML Metoprolol Tartrate 12.5 MG BID 05/19 1120 AC 05/23 PO 0846 Oxycodone/ 1 TAB Q4P PRN 05/18 1800 AC Acetaminophen PO Patient Medication 1 UNIT ONE NR 05/22 2100 DC Teaching ED 05/22 2130 Sodium Chloride 1,000 ML Q10H 05/19 0515 AC 05/23 IV 0152 Vancomycin HCl 1,000 MG Q12 05/18 2200 DC 05/21 Sodium Chloride 250 ML IV 2148 Results Last 24 Hrs Lab/Alex Results: as above MARIAN NGUYEN,SUGAR 05/23/16 1208: Attending MD Review Statement Attending Sign Off Attending Cosign Statement: I have: examined this patient, reviewed [facility] EMR data, personally reviewd images, discussd w/resident/PA/FALL INTERNSHIP, discussed mgmt plan w/pt, agreed w/resident/ PA/F[employer] INTERNSH[employer], amended to note. Other Findings: Patient seen and examined, offers no complaints. His echo results showed no significant abnormality. Vital signs are stable but he dropped his H&H. Please monitor H&H and type and cross. Please check stool for guaiac. I'm not sure why the patient is still getting IV fluids. Please check for Dr. Sargent in vascular about their plans for surgery and if there is no surgery planned for today, he does not need fluids. If there is any plan for surgery tomorrow he will likely need to be made nothing by mouth after midnight tonight. Patient has continued to refuse IV heparin. He has been started on aspirin as well as beta margie per cardiology recommendations.
[2016-05-23 08:22] VITALS: BP 137/79
[2016-05-23 09:53] LABS: ABSOLUTE BASOPHIL COUNT 0 /CUMM (0.0-0.2); ABSOLUTE EOSINOPHIL COUNT 0.2 /CUMM (0.0-0.7); ABSOLUTE GRANULOCYTE CT 6.1 /CUMM (1.4-6.5); ABSOLUTE LYMPH COUNT 1.3 /CUMM (1.2-3.4); ABSOLUTE MONOCYTE COUNT 0.4 /CUMM (0.10-0.60); BASOPHIL % 0.6 % (0.0-2.0); GRANULOCYTE % 76.6 % (42.2-75.2); MEAN CORPUSCULAR HGB 25.5 PG (27.0-31.0); MEAN CORPUSCULAR HGB CONC 32.6 G/DL (33.0-37.0); MEAN CORPUSCULAR VOLUME 78.3 FL (80.0-94.0); MEAN PLATELET VOLUME 8.1 FL (7.4-10.4); PLATELET COUNT 375 /CUMM (130-400); RBC DISTRIBUTION WIDTH 16.3 % (11.5-14.5); WHITE BLOOD CELL COUNT 7.9 /CUMM (4.8-10.8)
[2016-05-23 10:16] LABS: HEMATOCRIT 25.8 % (42-52)
--- NOTE | 2016-05-23 11:51 | PN- Podiatry ---
Subjective Subjective: Patient seen at bedside without any new acute complaints. Patient denies nausea vomiting fever chills. Objective Vital Signs and I&Os Vital Signs Date Time Temp Pulse Resp B/P Pulse O2 O2 Flow FiO2 Ox Delivery Rate 05/23 0746 137/79 05/23 821 97.8 69 16 137/79 96 Room Air 05/22 2346 97.8 88 18 138/72 97 Room Air 05/22 2104 71 138/72 05/22 2040 71 138/72 05/22 1540 98.6 67 18 142/74 97 Intake & Output 05/23 1600 05/23 0000 05/22 1600 05/22 0000 Intake Total 940 1340 5317 648 5466 Output Total 7623 954 5821 1050 550 Balance -860 490 -25 -250 650 Intake, IV 700 800 800 800 Intake, Oral 086 241 2587 400 Number 1 Bowel Movements Output, Urine 5777 802 1254 1050 550 Physical Exam: Improved edema and cellulitis left lower extremity. No pain with deep palpation bilateral lower extremities. Assessment/Plan Assessment/Plan Recalcitrant osteomyelitis left foot. Cellulitis left lower extremity. Awaiting vascular consult regarding possible BKA today. Core Measures/Miscellaneous Venous Thromboembolism VTE Risk Factors: Age > 40 VTE Contraindications: No Contraindications VTE Prophylaxis Ordered Inpt: Pharm- Heparin VTE Diagnosis: No Beta Tiago Is Beta Tiago a Home Med? Yes Antibiotics Is Patient on Antibiotics? Yes If Yes: infection Attending MD Review Statement Attending Statement Attending MD Statement: examined this patient
--- NOTE | 2016-05-23 12:36 | PN- Cardiology ---
Subjective Subjective: Minimal lower extremity discomfort. Otherwise without complaints. Objective Vital Signs and I&Os Vital Signs Date Time Temp Pulse Resp B/P Pulse O2 O2 Flow FiO2 Ox Delivery Rate 05/23 0846 137/79 05/23 0822 97.8 69 16 137/79 96 Room Air 05/22 2346 97.8 88 18 138/72 97 Room Air 05/22 2104 71 138/72 05/22 2040 71 138/72 05/22 1540 98.6 67 18 142/74 97 Intake & Output 05/23 1600 05/23 0800 05/23 0000 05/22 1600 05/22 0805/22 0000 Intake Total 940 1340 9567 945 0509 Output Total 7721 546 8545 1050 550 Balance -860 490 -25 -250 650 Intake, IV 700 800 800 800 Intake, Oral 257 743 5168 400 Number 1 Bowel Movements Output, Urine 8815 772 4264 1050 550 Physical Exam: General: no apparent distress. Alert. Eyes: No obvious scleral icterus. HEENT: No jugular venous distention or abnormal jugular venous pulsations. Cardiovascular: Normal intensity S1/S2. PMI not grossly displaced. Respiratory: No rales or rhonchi Abdomen: Soft, nontender with no guarding or rebound tenderness. Musculoskeletal: No cyanosis noted, left prior amputation with dressing. poor distal pulses. Skin: Warm. Current Medications: Current Medications Sig/Efren Start time Last Medication Dose Route Stop Time Status Admin Acetaminophen 650 MG .STK-MED ONE 05/22 1623 DC PO 05/22 1624 Acetaminophen 650 MG Q6-PRN PRN 05/18 1815 AC 05/22 PO 1627 Aspirin 81 MG DAILY 05/23 1000 AC PO Heparin Sodium 5,000 UNIT Q8 05/22 2200 AC 05/23 (Porcine) SC 0613 Heparin Sodium/ 25,000 UNIT Q24H 05/19 1115 DC Dextrose IV Dextrose/Water 500 ML Metoprolol Tartrate 12.5 MG BID 05/19 1120 AC 05/23 PO 0846 Oxycodone/ 1 TAB Q4P PRN 05/18 1800 AC Acetaminophen PO Patient Medication 1 UNIT ONE NR 05/22 2100 DC Teaching ED 05/22 2130 Sodium Chloride 1,000 ML Q10H 05/23 1230 AC IV Sodium Chloride 1,000 ML Q10H 05/19 0515 DC 05/23 IV 1205 Results Last 48 Hrs of Labs/Mics: Laboratory Tests 05/23/16 0916: Anion Gap 11, Estimated GFR > 60, BUN/Creatinine Ratio 11.1, Triglycerides 195 H, Cholesterol 163, LDL Cholesterol, Calc 92, HDL Cholesterol 32 L, Cholesterol /HDL Ratio 5 H, CBC w Diff NO MAN DIFF REQ, RBC 3.30 L, MCV 78.3 L, MCH 25.5 L, RDW 16.3 H, MPV 8.1, Gran % 76.6 H, Lymphocytes % 16.1 L, Monocytes % 4.7, Eosinophils % 2.0, Basophils % 0.6, Absolute Granulocytes 6.1, Absolute Lymphocytes 1.3, Absolute Monocytes 0.4, Absolute Eosinophils 0.2, Absolute Basophils 0, PUBS MCHC 32.6 L Recent Imaging Studies: Telemetry tracings personally reviewed and showed sinus rhythm with no evidence of sustained ventricular arrhythmia Echocardiogram CONCLUSIONS Normal left and right ventricular systolic function. No significant valvular abnormalities noted. Assessment/Plan Assessment/Plan 1. Elevated troponins likely due to demand ischemia 2. Osteomyelitis/sepsis 3. History of squamous cell carcinoma 4. Anemia 5. Hypertension, improved 6. Nicotine dependent Echocardiogram showed no evidence of acute wall motion abnormality which is consistent with the diagnosis of demand ischemia. Hemoglobin down to 8.4, this may be dilutional. Agree with additional workup including stool guaiac. No obvious indication for emergent transfusion at this time. Continue on the low- dose beta margie and would recommend considering low-dose empiric statin therapy with Lipitor 20 mg by mouth daily if no obvious contraindication. ? No recent CXR, would recommend baseline chest x-ray as surgery is being considered (significant smoking hx noted). Javier Rosen MD FAC Continue telemetry? Yes
--- NOTE | 2016-05-23 15:26 | PN- Vascular Surgery ---
Subjective Subjective: patient. no pain. has chronic left foot wound. possible drainage needed, possible amputation discussed. Review of Systems Constitutional: Denies: chills. Cardiovascular: Denies: chest pain. Respiratory: Denies: short of breath. Gastrointestinal: Denies: abdominal pain. Objective Vital Signs and I&Os Vital Signs Date Time Temp Pulse Resp B/P Pulse O2 O2 Flow FiO2 Ox Delivery Rate 05/23 0846 137/79 05/23 0822 97.8 69 16 137/79 96 Room Air 05/22 2346 97.8 88 18 138/72 97 Room Air 05/22 2104 71 138/72 05/22 2040 71 138/72 05/22 1540 98.6 67 18 142/74 97 Intake & Output 05/23 1600 05/23 0800 05/23 0000 05/22 1600 05/22 0805/22 0000 Intake Total 3284 997 9865 4452 340 1701 Output Total 950 2835 951 0754 1050 550 Balance 250 -860 490 -25 -250 650 Intake, IV 800 700 800 800 800 Intake, Oral 400 272 237 9679 400 Number 1 Bowel Movements Output, Urine 950 8232 736 1695 1050 550 Physical Exam: WD, WN male, NAD alert and oriented x 3 heart reg lungs clr abdom soft nt,nd LEFT LE: 2+ pop pulse; hernandez no erythema Left foot: purulent drainage from open, granulating wound Current Medications: Current Medications Sig/Efren Start time Last Medication Dose Route Stop Time Status Admin Acetaminophen 650 MG .STK-MED ONE 05/22 1623 DC PO 05/22 1624 Acetaminophen 650 MG Q6-PRN PRN 05/18 1815 AC 05/22 PO 1627 Aspirin 81 MG DAILY 05/23 1000 AC PO Heparin Sodium 5,000 UNIT Q8 05/22 2200 AC 05/23 (Porcine) SC 1454 Heparin Sodium/ 25,000 UNIT Q24H 05/19 1115 DC Dextrose IV Dextrose/Water 500 ML Metoprolol Tartrate 12.5 MG BID 05/19 1120 AC 05/23 PO 0846 Oxycodone/ 1 TAB Q4P PRN 05/18 1800 AC Acetaminophen PO Patient Medication 1 UNIT ONE NR 05/22 2100 DC Teaching ED 05/22 2130 Sodium Chloride 1,000 ML Q10H 05/23 1230 DC IV Sodium Chloride 1,000 ML Q10H 05/19 0515 DC 05/23 IV 1205 Assessment/Plan Assessment/Plan Osteomyelitis, local infection with abscess At this point, this wound would best be served with local incision and drainage per podiatry, to relieve local/regional sepsis. After 2-3 days, will plan on Left below-knee amputation. Discussed with patient. Plan discussed with IM, and podiatry. Problem List: 1. Osteomyelitis of foot, left, acute Core Measures/Miscellaneous Venous Thromboembolism VTE Risk Factors: Age > 40 VTE Contraindications: No Contraindications VTE Prophylaxis Ordered Inpt: Pharm- Heparin VTE Diagnosis: No Beta Tiago Is Beta Tiago a Home Med? Yes Antibiotics Is Patient on Antibiotics? Yes If Yes: infection
--- NOTE | 2016-05-23 15:41 | RADIOLOGY REPORT ---
EXAMINATION: XR CHEST PORTABLE CLINICAL INFORMATION: Preop, question of pleural effusion. COMPARISON: 05/25/2015 TECHNIQUE: Portable view of the chest was obtained. FINDINGS: Aside from poor inspiratory effort, no other abnormality is seen. The tiny nodular densities seen at the time of the previous study are not apparent on today's exam. Heart size is normal and there is no evidence of CHF. No effusions, infiltrates or worrisome lung masses are seen. Some chronic reticulonodular densities are present on the left. IMPRESSION: No acute intrathoracic disease.
[2016-05-23 16:26] VITALS: BP 136/80
[2016-05-23 19:32] LABS: ABSOLUTE BASOPHIL COUNT 0 /CUMM (0.0-0.2); ABSOLUTE EOSINOPHIL COUNT 0.2 /CUMM (0.0-0.7); ABSOLUTE LYMPH COUNT 1.5 /CUMM (1.2-3.4); ABSOLUTE MONOCYTE COUNT 0.5 /CUMM (0.10-0.60); BASOPHIL % 0.5 % (0.0-2.0); EOSINOPHIL % 2.2 % (0-5); GRANULOCYTE % 73.2 % (42.2-75.2); HEMATOCRIT 25.4 % (42-52); MEAN CORPUSCULAR HGB 25.4 PG (27.0-31.0); MEAN CORPUSCULAR HGB CONC 32.7 G/DL (33.0-37.0); MEAN CORPUSCULAR VOLUME 77.7 FL (80.0-94.0); MEAN PLATELET VOLUME 8.1 FL (7.4-10.4); PLATELET COUNT 411 /CUMM (130-400); RBC DISTRIBUTION WIDTH 16.2 % (11.5-14.5); RED BLOOD CELL CT 3.27 /CUMM (4.70-6.10); WHITE BLOOD CELL COUNT 8.3 /CUMM (4.8-10.8)
[2016-05-23 23:00] VITALS: BP 124/62
--- NOTE | 2016-05-24 08:21 | PN- Medicine Consult ---
DANIAL MASCORRO 05/24/16 0820: Assessment/Plan Assessment/Plan Assessment: Patient is a 65-year-old male with past medical history significant for recurrent foot infection, history of frostbite, history of MSSA and group B strep osteomyelitis, history of excision and debridement of the right foot. Patient presented to the emergency department after being evaluated by the visiting nurse due to left foot discharge. After admission, troponins started to rise, cardiology consult service was requested. Dr Rito Muñiz saw the patient in am, and recommended heprin drip and metoprolol 12.5 BID. MRI shows extension of osteomyeltis Problem list: -Recurrent osteomyelitis -Hypotension most likely secondary to sepsis -Positive troponin with EKG changes - Cardiac clearence for BKA Plan: - Patient is monitored off antibiotics. - Echocardiogram shows normal systolic and diastolic function. Is cleared by cardiology for BKA. Patient will have washout done today followed by BKA in 2-3 days. Patient refusing to aspirin wants the senior information security engineer to speak to him directly about it. No events on telemetry overnight so monitor is discontinued. - We will continue metoprolol 12.5 BID per senior information security engineer recommendation and hold for HR < 56 and systolic BP < 100 -Patient continued on home dose of statin -will continue to follow. Problem List: 1. Cellulitis Subjective Subjective: Patient seen and examined. feels well. No new complains. will go for his wound washout by dr. farley today. 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 No fever/chills. Monitored off antibiotics. Review of Systems Constitutional: Reports: see HPI. Objective Last 24 Hrs of Vital Signs/I&O Vital Signs Date Time Temp Pulse Resp B/P Pulse O2 O2 Flow FiO2 Ox Delivery Rate 05/24 09 124/70 05/24 08 98.2 70 18 124/70 98 Room Air 05/23 2300 97.7 61 18 124/62 96 Room Air 05/23 2145 61 124/62 05/23 1626 98.6 80 16 136/80 97 Room Air Intake & Output 05/24 1600 05/24 0800 05/24 0000 Intake Total 450 200 400 Output Total 1200 450 400 Balance -750 -250 0 Intake, IV 400 Intake, Oral 50 200 400 Number 1 Bowel Movements Output, Urine 1200 450 400 Physical Exam General Appearance: well developed/nourished, no apparent distress, alert, awake , comfortable Head: atraumatic, normal appearance Neck: normal inspection Respiratory: normal breath sounds, chest non-tender Abdomen: normal bowel sounds, soft, non-tender Extremities: refused examination Current Medications: Current Medications Sig/Efren Start time Last Medication Dose Route Stop Time Status Admin Acetaminophen 650 MG .STK-MED ONE 05/23 1904 DC PO 05/23 190 Acetaminophen 650 MG Q6-PRN PRN 05/18 181 AC 05/23 PO 1909 Aspirin 81 MG DAILY 05/23 1000 AC PO Heparin Sodium 5,000 UNIT Q8 05/22 2200 DC 05/23 (Porcine) SC 2145 Metoprolol Tartrate 12.5 MG BID 05/19 1120 AC 05/24 PO 0923 Oxycodone/ 1 TAB Q4P PRN 05/18 1800 AC Acetaminophen PO Sodium Chloride 1,000 ML Q20H 05/24 0830 AC 05/24 IV 0923 Results Last 24 Hrs Lab/Alex Results: Laboratory Tests 05/24/16 0945: CBC w Diff NO MAN DIFF REQ, RBC 3.46 L, MCV 78.2 L, MCH 25.4 L, RDW 16.4 H, MPV 8.0, Gran % 74.2, Lymphocytes % 16.4 L, Monocytes % 6.6, Eosinophils % 2.3, Basophils % 0.5, Absolute Granulocytes 6.0, Absolute Lymphocytes 1.3, Absolute Monocytes 0.5, Absolute Eosinophils 0.2, Absolute Basophils 0, PUBS MCHC 32.5 L 05/23/165: CBC w Diff NO MAN DIFF REQ, RBC 3.27 L, MCV 77.7 L, MCH 25.4 L, RDW 16.2 H, MPV 8.1, Gran % 73.2, Lymphocytes % 17.8 L, Monocytes % 6.3, Eosinophils % 2.2, Basophils % 0.5, Absolute Granulocytes 6.0, Absolute Lymphocytes 1.5, Absolute Monocytes 0.5, Absolute Eosinophils 0.2, Absolute Basophils 0, PUBS MCHC 32.7 L MARIAN NGUYEN,SUGAR 05/24/16 1124: Attending MD Review Statement Attending Sign Off Attending Cosign Statement: I have: examined this patient, reviewed [facility] EMR data, discussd w/resident/PA/ IMMUNOCHEMIST, discussed mgmt plan w/mehdi, discussed mgmt plan w/CM, discussed mgmt plan w/ pt, agreed w/resident/PA/IMMUNOCHEMIST, amended to note. Other Findings: Patient seen and examined, offers no complaints. His vital signs are stable and no telemetry events. Seen by cardiology and is cleared for the procedure. Patient is scheduled for procedure. Likely is going for a washout and then later for BKA. The timing of BKA is not clear yet. From telemetry standpoint he's stable therefore we can discontinue his study. Patient has been started on aspirin and beta margie per cardiology recommendations. Would also need to add statin. We'll start the starting tomorrow. H&H remained stable. For DVT prophylaxis patient is on heparin subcutaneous.
[2016-05-24 08:22] VITALS: BP 124/70
--- NOTE | 2016-05-24 09:34 | PN- Cardiology ---
Subjective Subjective: Patient feels well from a cardiac standpoint. He denies chest pain or shortness of breath. Plan is for left below the knee amputation this week Review of Systems: Eyes no blurred or double vision Ears no deafness or ringing Nose and throat no recurrent sinusitis Lungs per history of present illness Heart per history of present illness Abdomen no nausea vomiting Musculoskeletal occasional muscle and joint pains Psych no anxiety or depression Neuro without recurrent headache or seizures Endocrine no heat or cold intolerance Objective Vital Signs and I&Os Vital Signs Date Time Temp Pulse Resp B/P Pulse O2 O2 Flow FiO2 Ox Delivery Rate 05/24 922 124/70 05/24 08 98.2 70 18 124/70 98 Room Air 05/23 2300 97.7 61 18 124/62 96 Room Air 05/23 2145 61 124/62 05/23 1626 98.6 80 16 136/80 97 Room Air Intake & Output 05/24 1600 05/24 0800 05/24 0000 05/23 1600 05/23 0800 05/23 0000 Intake Total 773 181 7782 940 1340 Output Total 450 870 123 7385 850 Balance -250 0 250 -860 490 Intake, IV 800 700 800 Intake, Oral 200 400 400 240 540 Number 1 Bowel Movements Output, Urine 450 805 702 0007 850 Physical Exam: Patient is a well-developed well-nourished male appearing in no acute distress HEENT is unremarkable Neck is supple there is no JVD Lungs are clear Heart regular rhythm S1 and S2 are normal no murmurs gallops or rubs Abdomen bowel sounds positive Extremities without edema Current Medications: Current Medications Sig/Efren Start time Last Medication Dose Route Stop Time Status Admin Acetaminophen 650 MG .STK-MED ONE 05/23 190 DC PO 05/23 190 Acetaminophen 650 MG Q6-PRN PRN 05/18 1815 AC 05/23 PO 1909 Aspirin 81 MG DAILY 05/23 1000 AC PO Heparin Sodium 5,000 UNIT Q8 05/22 2200 DC 05/23 (Porcine) SC 2145 Metoprolol Tartrate 12.5 MG BID 05/19 1120 AC 05/24 PO 0923 Oxycodone/ 1 TAB Q4P PRN 05/18 1800 AC Acetaminophen PO Sodium Chloride 1,000 ML Q20H 05/24 0830 AC 05/24 IV 0923 Sodium Chloride 1,000 ML Q10H 05/23 1230 DC IV Sodium Chloride 1,000 ML Q10H 05/19 0515 DC 05/23 IV 1205 Results Last 48 Hrs of Labs/Mics: Laboratory Tests 05/23/16 1815: CBC w Diff NO MAN DIFF REQ, RBC 3.27 L, MCV 77.7 L, MCH 25.4 L, RDW 16.2 H, MPV 8.1, Gran % 73.2, Lymphocytes % 17.8 L, Monocytes % 6.3, Eosinophils % 2.2, Basophils % 0.5, Absolute Granulocytes 6.0, Absolute Lymphocytes 1.5, Absolute Monocytes 0.5, Absolute Eosinophils 0.2, Absolute Basophils 0, PUBS MCHC 32.7 L 05/23/16 0916: Anion Gap 11, Estimated GFR > 60, BUN/Creatinine Ratio 11.1, Triglycerides 195 H, Cholesterol 163, LDL Cholesterol, Calc 92, HDL Cholesterol 32 L, Cholesterol /HDL Ratio 5 H, CBC w Diff NO MAN DIFF REQ, RBC 3.30 L, MCV 78.3 L, MCH 25.5 L, RDW 16.3 H, MPV 8.1, Gran % 76.6 H, Lymphocytes % 16.1 L, Monocytes % 4.7, Eosinophils % 2.0, Basophils % 0.6, Absolute Granulocytes 6.1, Absolute Lymphocytes 1.3, Absolute Monocytes 0.4, Absolute Eosinophils 0.2, Absolute Basophils 0, PUBS MCHC 32.6 L Telemetry personally reviewed sinus rhythm sinus bradycardia Recent Imaging Studies: Echocardiogram CONCLUSIONS Normal left and right ventricular systolic function. No significant valvular abnormalities noted. Rito Dan M.D. Chest x-ray IMPRESSION: No acute intrathoracic disease. Assessment/Plan Assessment/Plan 1. Elevated troponins likely due to demand ischemia 2. Osteomyelitis/sepsis 3. History of squamous cell carcinoma 4. Anemia 5. Hypertension, improved 6. Nicotine dependent Recommendations 1. Continue current medications 2. Given minimally elevated troponins and no wall motion abnormality noted on echocardiogram his elevated troponins are due to demand ischemia. Patient is stable from the cardiac standpoint for left below the knee amputation 3. Continue aspirin and metoprolol 4. Would add statin Continue telemetry? Yes
[2016-05-24 10:50] LABS: ABSOLUTE BASOPHIL COUNT 0 /CUMM (0.0-0.2); ABSOLUTE EOSINOPHIL COUNT 0.2 /CUMM (0.0-0.7); ABSOLUTE LYMPH COUNT 1.3 /CUMM (1.2-3.4); ABSOLUTE MONOCYTE COUNT 0.5 /CUMM (0.10-0.60); BASOPHIL % 0.5 % (0.0-2.0); EOSINOPHIL % 2.3 % (0-5); GRANULOCYTE % 74.2 % (42.2-75.2); MEAN CORPUSCULAR HGB 25.4 PG (27.0-31.0); MEAN CORPUSCULAR HGB CONC 32.5 G/DL (33.0-37.0); MEAN CORPUSCULAR VOLUME 78.2 FL (80.0-94.0); PLATELET COUNT 436 /CUMM (130-400); RBC DISTRIBUTION WIDTH 16.4 % (11.5-14.5); RED BLOOD CELL CT 3.46 /CUMM (4.70-6.10)
[2016-05-24 15:59] VITALS: BP 140/70
--- NOTE | 2016-05-24 18:08 | Operative Report ---
Operative/Inv Procedure Report Surgery Date: 05/24/16 Name of Procedure: 1 open incision and drainage deep to the fashion with exposure of the flexor tendon and tendon sheath multiple sites left foot 2 excisional debridement left foot Pre-Operative Diagnosis: 1 plantar space abscess left foot Post-Operative Diagnosis: The same Estimated Blood Loss: less than 50ml Surgeon/Brand Mgr: HERO MONTOYA,ZENA Sun DPM Anesthesia: moderate sedation, block Operative/Procedure Note Note: After obtaining informed consent the patient was brought to the operating room and placed on the operating table in the supine position. The patient was then securely fastened to the operating table utilizing safety belt. After administration of IV sedation, 10 mL of 0.5% Marcaine plain was infiltrated about the patient's left ankle. Left foot and ankle screw prepped and draped in the usual aseptic manner. Attention directed left foot were large full- thickness chronic was identified. A 15 blade visualized sharply revised skin margins. The dissection was then carried down deep to the fashion with exposure of the flexor tendon and tendon sheath multiple sites left foot. All necrotic nonviable infected tissue sharply evacuated from the wound bed. Soft tissue specimen was sent for Jerod collier inspection. Nipple was then irrigated with 3 L normal sterile saline fissure 50,000 units of bacitracin. Following this foot was redraped and the surgeon's top pleasure changed clean gloves. Any bleeding vessels identified were cauterized or ligated as encountered. Nipple was then packed with Betadine saturated 4 x 4's followed by Kerlix EBD pads and Coban. The patient was noted to tolerate both procedure and anesthesia well and the patient was transported from the operating room to recovery by sent stable.
[2016-05-24 19:25] VITALS: BP 138/80
--- NOTE | 2016-05-24 19:28 | NUR ---
PT ARRIVED BACK FROM PACU. A/O X3, IN [facility] SPIRITS. ROOM AIR, NO S/S DISTRESS. DENIES PAIN. L FOOT WRAPPED BY SURGERY S/P I&D. NO DRAINAGE. DRSG CDI. VS 138/80, HR 93, 97.9, RESP 20, 99% ON ROOM AIR. CALL LIGHT WITHIN REACH, WATER AND URINAL AT BEDSIDE.
[2016-05-24 23:28] VITALS: BP 128/62
[2016-05-25 08:03] VITALS: BP 122/70
--- NOTE | 2016-05-25 08:23 | PN- Medicine Consult ---
DANIAL MASCORRO 05/25/16 0823: Assessment/Plan Assessment/Plan Assessment: Patient is a 65-year-old male with past medical history significant for recurrent foot infection, history of frostbite, history of MSSA and group B strep osteomyelitis, history of excision and debridement of the right foot. Patient presented to the emergency department after being evaluated by the visiting nurse due to left foot discharge. After admission, troponins started to rise, cardiology consult service was requested. Dr Rito Muñiz saw the patient in am, and recommended heprin drip and metoprolol 12.5 BID. MRI shows extension of osteomyeltis Problem list: -Recurrent osteomyelitis -Hypotension most likely secondary to sepsis -Positive troponin with EKG changes - Cardiac clearence for BKA Plan: - Patient started on vancomycin post debridement, OR cultures grow cam positive cocci and gram negative rods. Patient will need gram negative coverage - Echocardiogram shows normal systolic and diastolic function. -Patient is in OR this am for BKA by dr. Savanna Cowan -Patient refusing to aspirin wants the pick and shovel man to speak to him directly about it. -classroom monitor has been discontinued on the patient - We will continue metoprolol 12.5 BID per pick and shovel man recommendation and hold for HR < 56 and systolic BP < 100 -Patient continued on home dose of statin -will continue to follow. Problem List: 1. Osteomyelitis of foot, left, acute Subjective Subjective: Patient is in OR for BKA Review of Systems Constitutional: Reports: see HPI. Objective Last 24 Hrs of Vital Signs/I&O Vital Signs Date Time Temp Pulse Resp B/P Pulse O2 O2 Flow FiO2 Ox Delivery Rate 05/25 802 98.4 89 20 122/70 93 Room Air 05/25 08 Room Air 05/248 98.8 74 20 128/62 96 Room Air 05/24 2037 91 130/84 05/24 1924 97.9 93 20 138/80 99 Room Air 05/24 1559 98.2 63 20 140/70 98 Room Air Intake & Output 05/25 1600 05/25 0800 05/25 0000 Intake Total 10 660 Output Total 400 550 Balance -390 110 Intake, IV 10 Intake, Oral 0 660 Output, Urine 400 550 Current Medications: Current Medications Sig/Efren Start time Last Medication Dose Route Stop Time Status Admin Acetaminophen 650 MG .STK-MED ONE 05/24 2031 DC PO 05/24 2032 Acetaminophen 650 MG Q6-PRN PRN 05/18 1815 AC 05/24 PO 203 Aspirin 81 MG DAILY 05/23 1000 AC PO Atorvastatin Calcium 20 MG 1700 05/25 1700 AC PO Fentanyl Citrate 100 MCG .STK-MED ONE 05/24 171 DC IM 05/24 171 Metoprolol Tartrate 12.5 MG BID 05/19 1120 AC 05/24 PO 2037 Midazolam HCl 2 MG .STK-MED ONE 05/24 171 DC IM 05/24 171 Oxycodone/ 1 TAB Q4P PRN 05/18 1800 AC Acetaminophen PO Sodium Chloride 1,000 ML Q20H 05/24 0830 DC 05/24 IV 0923 Vancomycin HCl 1,000 MG Q12 05/24 2200 AC 05/24 Sodium Chloride 250 ML IV 204 Results Last 24 Hrs Lab/Alex Results: Microbiology 05/24 180 EXTREMITIE: Gross Specimen Examination - RES GRAM NEGATIVE RODS GRAM POSITIVE COCCI 05/24 1800 EXTREMITIE: Gram Stain - RES 05/24 174 BODY FLUID: Body Fluid Culture - CAN Cancelled: INCORRECT OR ORDER 05/24 1744 BODY FLUID: Gram Stain - CAN Cancelled: INCORRECT OR ORDER MARIAN NGUYEN,[facility] 05/25/16 1540: Attending MD Review Statement Attending Sign Off Attending Cosign Statement: I have: examined this patient, reviewed [facility] EMR data, personally reviewd images, discussd w/resident/PA/SHOW CARD WRITER, discussed mgmt plan w/mehdi, discussed mgmt plan w/CM, discussed mgmt plan w/pt, agreed w/resident/PA/SHOW CARD WRITER, amended to note. Other Findings: Patient seen and examined, came back from surgery. HAd BKA. Still slightly drwosy. VSS Patient has a DEBORA wrap and immobilizer around LLE at the surgery site. Vanco was restarted by Podiatry/Vasc surg. Pt has concepción started on diet. Once more awake and able to eat, can likely DC IVFs after bag if otherwise stable. Continue pain mx. Continue otyhre current meds. Resume Pharmacologic DVT px when it is safe from post surgical stand point.
--- NOTE | 2016-05-25 11:00 | PN- Vascular Surgery ---
Subjective Subjective: Post op left bka Pt had a femoral block at end of case *vanc allergy listed but pt denies having this allergy and has had vanco while in the hospital and in the OR without reaction Currently awake and alert in the PACU comfortable without complaints Objective Vital Signs and I&Os Vital Signs Date Time Temp Pulse Resp B/P Pulse O2 O2 Flow FiO2 Ox Delivery Rate 05/25 08 98.4 89 20 122/70 93 Room Air 05/25 0800 Room Air 05/24 2328 98.8 74 20 128/62 96 Room Air 05/24 2038 91 130/84 05/24 1925 97.9 93 20 138/80 99 Room Air 05/24 1559 98.2 63 20 140/70 98 Room Air Intake & Output 05/25 1600 05/25 0800 05/25 0000 05/24 1600 05/24 0800 05/24 0000 Intake Total 10 660 450 200 400 Output Total 894 220 1053 450 400 Balance -390 110 -750 -250 0 Intake, IV 10 400 Intake, Oral 0 660 50 200 400 Number 1 Bowel Movements Output, Urine 162 535 6364 450 400 Physical Exam: HR 76 regular bp 117/81 RR 16 Sat 98% 2lnc General: awake and alert Chest: clear anteriorly bilaterally, RRR Abd: soft, good bs Ext: LLE warm, no edema RLE dressed in lucas wrap, dry, knee immobilizer in place, positive sensate Assessment/Plan Assessment/Plan 65 yo male with osteomyelitis and nonhealing RLE wound now s/p R BKA Plan to continue vanc for 24 hrs post op, then only contine if medically warranted, not necessary per surgical service after 24 hours Regular diet pain management dressing will be changed on pod 2 - Mariah will be notified to have log check scaler available on pod 2 keep knee immobilizer in place at this time All other plans per medical team
--- NOTE | 2016-05-25 11:37 | Operative Report ---
Operative/Inv Procedure Report Surgery Date: 05/25/16 Name of Procedure: Left Transtibial amputation Pre-Operative Diagnosis: Recurrent left foot infection and osteomyelitis Post-Operative Diagnosis: Same Estimated Blood Loss: 250ml Surgeon/Operator Specialist Communications: JOSESITO WELCH MD/ Letha MORENO Anesthesia: general endotracheal tube Operative/Procedure Note Note: 65-year-old man who is status left TMA which has been complicated with recurrent infection and multiple revision with a very high TMA presented with recurrent left foot infection and osteomyelitis. Because of the high TMA, there wasn't much of a podiatry procedure to be done. Vascular surgery was asked to see the patient for left below-knee amputation. The nature of the procedure including its possible complications including but not limited to bleeding, infection, blood clots, injury to nerves or vessels, pain, and need for re-intervention were discussed. An informed consent was obtained. Patient was taken to the operating room and placed supine on the table. A timeout was called according to the protocol. After satisfactory induction of anesthesia, patient was prepped and draped in standard surgical fashion. Using a 10 blade, skin incision was made over the skin over the previously marked area for a posterior flap configuration. The incision was carried down through the subcutaneous venous tissue and fascia using electrocautery. All the vessels and the calf were ligated and divided. The sciatic nerve was identified and ligated and divided. The tibial bone was then transected using an electric saw. The fibula was then transected about 1 cm shorter than the tibia. Hemostasis was obtained. The sharp, anterior surface of the tibia was then filed to create a smooth edge. The wound was then copiously irrigated with sterile saline. The stump was closed in 3 layers. The first layer was closure of muscle fascia over the bone in an interrupted fashion using 2-0 Vicryl suture. Then the subdermal fascia was closed in an interrupted fashion using 3-0 Vicryl suture. Multiple subcuticular interrupted sutures were also placed using 3-0 Vicryl suture. The skin was then closed with chet. Sterile dressings was applied. Then a knee immobilizer was placed. Anesthesia then had planned to perform a femoral block for postop pain control. For the details of this part of the procedure please refer to the anesthesia notes. The count at the end of the case was correct. The patient was then taken to the PACU in stable condition.
[2016-05-25 13:04] VITALS: BP 120/70
[2016-05-25 15:41] VITALS: BP 120/80
--- NOTE | 2016-05-25 17:02 | PN- Podiatry ---
Subjective Subjective: Patient seen at bedside status post BKA left. No acute complaints. Objective Vital Signs and I&Os Vital Signs Date Time Temp Pulse Resp B/P Pulse O2 O2 Flow FiO2 Ox Delivery Rate 05/25 1541 97.8 80 16 120/80 96 Room Air 05/25 1304 98.1 78 18 120/70 99 Room Air 05/25 0803 98.4 89 20 122/70 93 Room Air 05/25 0800 Room Air 05/24 2328 98.8 74 20 128/62 96 Room Air 05/24 2038 91 130/84 05/24 1925 97.9 93 20 138/80 99 Room Air Intake & Output 05/25 1600 05/25 0800 05/25 0000 05/24 1600 05/24 0800 05/24 0000 Intake Total 10 660 450 200 400 Output Total 478 628 0610 450 400 Balance -390 110 -750 -250 0 Intake, IV 10 400 Intake, Oral 0 660 50 200 400 Number 1 Bowel Movements Output, Urine 514 337 3927 450 400 Physical Exam: Dressing left leg clean dry and intact. Assessment/Plan Assessment/Plan Status post BKA left lower extremity for recalcitrant osteomyelitis. Follow-up with case management for discharge planning. Core Measures/Miscellaneous Venous Thromboembolism VTE Risk Factors: Age > 40 VTE Contraindications: No Contraindications VTE Prophylaxis Ordered Inpt: Pharm- Heparin VTE Diagnosis: No Beta Tiago Is Beta Tiago a Home Med? Yes Antibiotics Is Patient on Antibiotics? Yes If Yes: infection Attending MD Review Statement Attending Statement Attending MD Statement: examined this patient
[2016-05-26 00:15] VITALS: BP 126/70
--- NOTE | 2016-05-26 07:45 | PN- Medicine Consult ---
DANIAL MASCORRO 05/26/16 0744: Assessment/Plan Assessment/Plan Assessment: Patient is a 65-year-old male with past medical history significant for recurrent foot infection, history of frostbite, history of MSSA and group B strep osteomyelitis, history of excision and debridement of the right foot. Patient presented to the emergency department after being evaluated by the visiting nurse due to left foot discharge. After admission, troponins started to rise, cardiology consult service was requested. Dr Rito Muñiz saw the patient in am, and recommended heprin drip and metoprolol 12.5 BID. MRI shows extension of osteomyeltis Problem list: -Recurrent osteomyelitis -Hypotension most likely secondary to sepsis -Positive troponin with EKG changes - Cardiac clearence for BKA Plan: -Patient had BKA done on 05/25/15, may be discharged home later today if pain under control -PT evaluation for discharge recommendation - Patient started on vancomycin post debridement may d/c antibiotics now per vascular OR cultures grow cam positive cocci and gram negative rods. -manager english has been discontinued on the patient -metoprolol 12.5 BID per tucking machine operator recommendation and hold for HR < 56 and systolic BP < 100 -Patient is taking metoprolol, aspirin and statin - Echocardiogram shows normal systolic and diastolic function. DVT ppx alps and SC heprin Patient is full code Subjective Subjective: Patient seen and examined. Feels well. No new complains. Pain well controlled onc urrent regimen. His apetite is good. Plan Objective Last 24 Hrs of Vital Signs/I&O Vital Signs Date Time Temp Pulse Resp B/P Pulse O2 O2 Flow FiO2 Ox Delivery Rate 05/26 0908 75 122/60 05/26 0829 98.5 75 18 122/60 94 Room Air 05/26 0015 97.7 82 18 126/70 95 Room Air 05/25 2158 80 120/80 05/25 1541 97.8 80 16 120/80 96 Room Air 05/25 1304 98.1 78 18 120/70 99 Room Air Intake & Output 05/26 1600 05/26 0800 05/26 0000 Intake Total 300 445 Output Total 1775 550 Balance -1475 -105 Intake, IV 325 Intake, Oral 300 120 Output, Urine 1775 550 Physical Exam General Appearance: well developed/nourished, no apparent distress, alert, awake Head: atraumatic, normal appearance Cardiovascular: regular rate/rhythm Respiratory: normal breath sounds, chest non-tender, no respiratory distress Abdomen: normal bowel sounds, soft, non-tender Extremities: left leg BKA Current Medications: Current Medications Sig/Efren Start time Last Medication Dose Route Stop Time Status Admin Acetaminophen 650 MG Q6-PRN PRN 05/25 1115 AC PO Acetaminophen 650 MG Q6-PRN PRN 05/18 1815 DC 05/24 PO 2038 Aspirin 81 MG DAILY 05/26 1000 AC PO Aspirin 81 MG DAILY 05/23 1000 DC PO Atorvastatin Calcium 20 MG 1700 05/25 1700 DC PO Atorvastatin Calcium 20 MG 1700 05/25 1700 AC 05/25 PO 1723 Dextrose/Sodium 1,000 ML Q13H 05/25 1115 DC 05/26 Chloride IV 0014 Hydromorphone HCl 2 MG Q4P PRN 05/25 1115 AC 05/25 IV 1311 Metoprolol Tartrate 12.5 MG BID 05/25 2200 AC 05/25 PO 2158 Metoprolol Tartrate 12.5 MG BID 05/19 1120 DC 05/24 PO 2038 Oxycodone/ 1 TAB Q4P PRN 05/25 1115 AC Acetaminophen PO Oxycodone/ 2 TAB Q4P PRN 05/25 1115 AC 05/26 Acetaminophen PO 0500 Oxycodone/ 1 TAB Q4P PRN 05/18 1800 DC Acetaminophen PO Vancomycin HCl 1,000 MG Q12 05/25 2200 AC 05/25 Sodium Chloride 250 ML IV 2158 Vancomycin HCl 1,000 MG Q12 05/24 2200 DC 05/25 Sodium Chloride 250 ML IV 05/25 1059 1311 Results Last 24 Hrs Lab/Alex Results: as above MARIAN NGUYEN,SUGAR 05/26/16 1211: Attending MD Review Statement Attending Sign Off Attending Cosign Statement: I have: examined this patient, reviewed [facility] EMR data, discussd w/resident/PA/ VICTORIAN LITERATURE PROFESSOR, discussed mgmt plan w/mehdi, discussed mgmt plan w/CM, discussed mgmt plan w/ pt, agreed w/resident/PA/VICTORIAN LITERATURE PROFESSOR, amended to note. Other Findings: Patient seen and examined, doing okay. Offers no complaints. Pain is under reasonable control. Hemodynamics are stable. H&H remained stable. Patient is status post left BKA postop day #1 today. From medical standpoint he is stable for discharge. Please discuss with podiatry about his discharge plan as well as the duration of antibiotics. Patient will likely need to go to rehabilitation upon discharge. Continue all current medications.
--- NOTE | 2016-05-26 08:01 | PN- Vascular Surgery ---
Subjective Subjective: POD #1 s/p left BKA. Resting comfortably in bed. No complaints of pain to left stump. Denies N/V, F/C, CP/SOB. Voiding spontaneously. Having BMs. Objective Vital Signs and I&Os Vital Signs Date Time Temp Pulse Resp B/P Pulse O2 O2 Flow FiO2 Ox Delivery Rate / 0015 97.7 82 18 126/70 95 Room Air / 2158 80 120/80 / 1541 97.8 80 16 120/80 96 Room Air 05/25 1304 98.1 78 18 120/70 99 Room Air / 0803 98.4 89 20 122/70 93 Room Air / 0800 Room Air Intake & Output / 0800 / 0000 05/25 1600 05/25 0800 05/25 0000 05/24 1600 Intake Total 300 445 10 660 450 Output Total 1775 550 870 940 3187 Balance -1475 -550 445 -390 110 -750 Intake, IV 325 10 400 Intake, Oral 300 120 0 660 50 Output, Urine 1775 550 019 610 2364 Physical Exam: Gen: AAOx3 in NAD Cor: S1+S2+ Lungs: CTA jennifer Abd: soft, NT, ND, +BS x4 Ext: left knee immobilizer in place. No strikethrough noted. Minimal tenderness to palpation. Assessment/Plan Assessment/Plan A: 65 year old male POD #1 s/p left BKA for osteomyelitis of TMA site. AVSS. Plan: ? duration of Vanco now that source control has been obtained. PT/OT eval today-ordered Pain regimen per primary team. Dressing change by vascular surgery tomorrow with attending present.
[2016-05-26 08:29] VITALS: BP 122/60
[2016-05-26 10:06] LABS: ABSOLUTE BASOPHIL COUNT 0 /CUMM (0.0-0.2); ABSOLUTE EOSINOPHIL COUNT 0.1 /CUMM (0.0-0.7); ABSOLUTE GRANULOCYTE CT 6.1 /CUMM (1.4-6.5); ABSOLUTE LYMPH COUNT 1.2 /CUMM (1.2-3.4); ABSOLUTE MONOCYTE COUNT 0.5 /CUMM (0.10-0.60); BASOPHIL % 0.5 % (0.0-2.0); EOSINOPHIL % 1.8 % (0-5); GRANULOCYTE % 76.7 % (42.2-75.2); HEMATOCRIT 25.3 % (42-52); MEAN CORPUSCULAR HGB 26.5 PG (27.0-31.0); MEAN CORPUSCULAR HGB CONC 32.7 G/DL (33.0-37.0); MEAN CORPUSCULAR VOLUME 81.1 FL (80.0-94.0); PLATELET COUNT 427 /CUMM (130-400); RBC DISTRIBUTION WIDTH 17.8 % (11.5-14.5); RED BLOOD CELL CT 3.12 /CUMM (4.70-6.10)
--- NOTE | 2016-05-26 10:48 | PN- Cardiology ---
Subjective Subjective: Tolerated left amputation well. He is comfortable denies any pain, chest pain or unusual shortness of breath. Objective Vital Signs and I&Os Vital Signs Date Time Temp Pulse Resp B/P Pulse O2 O2 Flow FiO2 Ox Delivery Rate 05/26 0908 75 122/60 05/26 0829 98.5 75 18 122/60 94 Room Air 05/26 0015 97.7 82 18 126/70 95 Room Air 05/25 2158 80 120/80 05/25 1541 97.8 80 16 120/80 96 Room Air 05/25 1304 98.1 78 18 120/70 99 Room Air Intake & Output 05/26 1600 05/26 0800 05/26 0000 05/25 1600 05/25 0800 05/25 0000 Intake Total 300 445 10 660 Output Total 1775 550 400 550 Balance -1475 -550 445 -390 110 Intake, IV 325 10 Intake, Oral 300 120 0 660 Output, Urine 1775 550 400 550 Physical Exam: Gen. exam patient comfortable Head normocephalic atraumatic Eyes sclera anicteric conjunctiva showed no pallor extraocular muscles were normal Neck no jugular venous distention no thyroid masses no palpable nodes Chest lungs were clear bilaterally Heart regular rhythm without murmurs Abdomen soft no organomegaly Extremities recent amputation left forefoot and remote amputation right forefoot. Assessment/Plan Assessment/Plan In summary this 65-year-old gentleman has the following problems 1. Elevated troponins likely due to demand ischemia 2. Osteomyelitis/sepsis 3. History of squamous cell carcinoma 4. Anemia 5. Hypertension, improved 6. Nicotine dependent He tolerated his surgery well. I would repeat electrocardiogram today. If stable he can follow-up in our office as an outpatient. He will need a nuclear stress test at some time. Etiology of the anemia is is uncertain but will defer to general medical doctor. For the time being continue on beta blockers and statins as preventative for coronary disease. Continue telemetry? Not applicable
[2016-05-26 16:33] VITALS: BP 120/64
--- NOTE | 2016-05-26 17:25 | PN- Podiatry ---
Subjective Subjective: Patient seen at bedside doing well. No acute complaints. Patient denies nausea vomiting fever chills. Objective Vital Signs and I&Os Vital Signs Date Time Temp Pulse Resp B/P Pulse O2 O2 Flow FiO2 Ox Delivery Rate 05/26 1633 97.7 80 20 120/64 95 Room Air 05/26 1442 Room Air 05/26 0908 75 122/60 05/26 0829 98.5 75 18 122/60 94 Room Air 05/26 0015 97.7 82 18 126/70 95 Room Air 05/25 2158 80 120/80 Intake & Output 05/26 1600 05/26 0800 05/26 0000 05/25 1600 05/25 0800 05/25 0000 Intake Total 300 445 10 660 Output Total 800 1775 550 400 550 Balance -800 -1475 -550 445 -390 110 Intake, IV 325 10 Intake, Oral 300 120 0 660 Output, Urine 800 1775 550 400 550 Physical Exam: Dressing left leg clean dry and intact. No strikethrough identified. Assessment/Plan Assessment/Plan Patient status post BKA left. Anticipate discharge tomorrow pending placement. Continue postop orders per vascular recommendations. Core Measures/Miscellaneous Venous Thromboembolism VTE Risk Factors: Age > 40 VTE Contraindications: No Contraindications VTE Prophylaxis Ordered Inpt: Pharm- Heparin VTE Diagnosis: No Beta Tiago Is Beta Tiago a Home Med? Yes Antibiotics Is Patient on Antibiotics? Yes If Yes: infection Attending MD Review Statement Attending Statement Attending MD Statement: examined this patient
[2016-05-26 23:37] VITALS: BP 128/62
--- NOTE | 2016-05-27 07:57 | PN- Medicine Consult ---
DANIAL MASCORRO 05/27/16 0756: Assessment/Plan Assessment/Plan Assessment: Patient is a 65-year-old male with past medical history significant for recurrent foot infection, history of frostbite, history of MSSA and group B strep osteomyelitis, history of excision and debridement of the right foot. Patient presented to the emergency department after being evaluated by the visiting nurse due to left foot discharge. After admission, troponins started to rise, cardiology consult service was requested. Dr Rito Muñiz saw the patient in am, and recommended heprin drip and metoprolol 12.5 BID. MRI shows extension of osteomyeltis Problem list: -Recurrent osteomyelitis -Hypotension most likely secondary to sepsis -Positive troponin with EKG changes - Cardiac clearence for BKA Plan: -Patient had BKA done on 05/25/15, may be discharged home later today if pain under control -He will be discharged to a rehab - Patient started on vancomycin post debridement, decision to stop antibiotics would be per podiatry/vascular surgery OR cultures grow cam positive cocci and gram negative rods. -mining engineer has been discontinued on the patient -metoprolol 12.5 BID per acid pump operator recommendation and hold for HR < 56 and systolic BP < 100 -Patient is taking metoprolol, aspirin and statin - Echocardiogram shows normal systolic and diastolic function. DVT ppx alps and SC heprin Patient is full code Subjective Subjective: Patient seen and examined. Feels well. No new complains Objective Last 24 Hrs of Vital Signs/I&O Vital Signs Date Time Temp Pulse Resp B/P Pulse O2 O2 Flow FiO2 Ox Delivery Rate 05/27 0945 66 120/70 05/27 0828 97.7 66 20 120/70 97 Room Air 05/26 2337 98.3 79 20 128/62 94 Room Air 05/26 2233 82 140/68 05/26 1633 97.7 80 20 120/64 95 Room Air Intake & Output 05/27 1600 05/27 0800 05/27 0000 Intake Total 120 510 Output Total 400 850 Balance -280 -340 Intake, IV 270 Intake, Oral 120 240 Number 0 Bowel Movements Output, Urine 400 850 Physical Exam General Appearance: well developed/nourished, no apparent distress, alert, awake Head: atraumatic, normal appearance Neck: normal inspection, supple Cardiovascular: regular rate/rhythm Respiratory: normal breath sounds, chest non-tender Abdomen: normal bowel sounds, soft, non-tender Current Medications: Current Medications Sig/Efren Start time Last Medication Dose Route Stop Time Status Admin Acetaminophen 650 MG Q6-PRN PRN 05/25 1115 AC PO Aspirin 81 MG DAILY 05/26 1000 AC 05/27 PO 0946 Atorvastatin Calcium 20 MG 1700 05/25 1700 AC 05/26 PO 1728 Bisacodyl 5 MG ONE PRN 05/27 1330 AC 05/27 PO 1426 Bisacodyl 10 MG ONCE PRN 05/27 1330 AC GA Hydromorphone HCl 2 MG Q4P PRN 05/25 1115 AC 05/25 IV 1311 Metoprolol Tartrate 12.5 MG BID 05/25 2200 AC 05/27 PO 0945 Oxycodone/ 1 TAB Q4P PRN 05/25 1115 AC Acetaminophen PO Oxycodone/ 2 TAB Q4P PRN 05/25 1115 AC 05/27 Acetaminophen PO 1326 Patient Medication 1 ED .STK-MED ONE 05/27 1346 DC Teaching ED 05/27 1347 Vancomycin HCl 1,000 MG Q12 05/25 2200 AC 05/27 Sodium Chloride 250 ML IV 0946 Results Last 24 Hrs Lab/Alex Results: as above MARIAN NGUYEN,SUGAR 05/27/16 1214: Attending MD Review Statement Attending Sign Off Attending Cosign Statement: I have: examined this patient, reviewed [facility] EMR data, discussd w/resident/PA/ MARKETING PRODUCTION COORDINATOR, discussed mgmt plan w/mehdi, discussed mgmt plan w/CM, discussed mgmt plan w/ pt, agreed w/resident/PA/MARKETING PRODUCTION COORDINATOR, amended to note. Other Findings: Patient seen and examined, denies any complaints. He status post left BKA. Continue current medications. Antibiotics per podiatry. He is awaiting placement. No changes were made in his medical regimen for now but I will leave the decision of antibiotics up to surgery and podiatry.
[2016-05-27 08:28] VITALS: BP 120/70
--- NOTE | 2016-05-27 13:50 | PN- Vascular Surgery ---
Surgical Brief Attending Note Brief Attending Note: POD 2 left BKA Stump is healing well with no evidence of ischemia or infection Sap Bobj Developer to place in home sales consultant. Continure knee immobolizer follow up with me for postop check
[2016-05-27 15:50] VITALS: BP 126/78
--- NOTE | 2016-05-27 17:01 | Surgical Discharge Summary ---
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 The patient has failed multiple debridements and resections with courses of IV antibiotics. Patient was admitted for debridement and below-knee amputation. Medical History Blood Transfusion Hx: No Neurological: NONE EENT: NONE Cardiovascular: NONE Respiratory: NONE Gastrointestinal: APPENDECTOMY Hepatic: NONE Renal: NONE Musculoskeletal: NANNETTE TOE AMPUTATIONS SKIN CANCER OF FEET FROSTBITE Psychiatric: NONE Endocrine: NONE Blood Disorders: NONE Cancer(s): SKIN CANCER BOOK OR SCRIPT EDITOR/Reproductive: NONE Other Medical Hx: FROSTBITE FEET. History of MRSA: Yes History of VRE: No History of CDIFF: No Isolation History: Contact Influenza Vaccine: 05/19/15 Surgical History Pertinent Surgical History: 12 FOOT SURGERIES APPENDECTOMY Family History Relations & Conditions If Any: Relation not specified for: *No pertinent family history Psychosocial History Where Do You Live? Home Who Do You Live With? Son Services at Home: Nursing What is Your Primary Language? Latvian ETOH Use: denies use Review of Systems: Unremarkable except for that noted in history of present illness Hospital Course Course Attending Physician: ZENA MONAHAN DPM Primary Care Physician: PATIENT HAS NO PRIMARY CARE DR Hospital Course: Patient was admitted for IV antibiotics and debridement and was noted to defervesce with an improving white count following the institution of therapy. The patient underwent an initial foot debridement with drainage of abscess and subsequent below-knee amputation. Patient was stable during the duration of his stay. Patient tolerated the procedures and anesthesia well. Allergies: Coded Allergies: Penicillins (Intermediate, ANAPHYLAXIS 03/24/16) nut - unspecified (05/20/16) vancomycin (Mild, DIZZINESS 05/26/16) Uncoded Allergies: CLEANING PRODUCTS (Severe, ANAPHYLAXIS 08/21/15) Disposition Summary Disposition Principal Diagnosis: Recalcitrant osteomyelitis left foot with cellulitis Additional Diagnosis: Locally invasive non-melanotic squamous cell carcinoma Discharge Disposition: SNF Discharge Instructions General Discharge Information Code Status: Full Code Patient's Diet: Regular Patient's Activity: As tolerated with crutch assist left Follow-Up Instructions/Appts: Patient is to follow up with the vascular service for postoperative check. Medications at Discharge Discharge Medications: Start taking the following new medications: Oxycodone HCl/Acetaminophen (Percocet 5-325 MG Tablet) 5 MG-325 MG TABLET 1 Tablet ORAL 4 TIMES A DAY Qty = 20 No Refills Comments: Last Taken: 05/27/16 Time: 1330 Doxycycline Hyclate (Doxycycline Hyclate) 100 MG TABLET 1 Tablet ORAL TWICE DAILY Qty = 14 No Refills Comments: NOT GIVEN IN HOSPITAL Copies To: ZENA MONAHAN DPM Attending MD Review Statement Attending Statement Attending MD Statement: examined this patient
[2016-05-27] MEDS ORDERED: PERCOCET 5-3251 EACH PO (17:02)
[2016-05-27] MEDS ORDERED: DOXYCYCLINE HY100 M4 PO (17:02)
[2016-05-27 17:58] VITALS: BP 126/78
--- NOTE | 2016-05-27 19:45 | NUR ---
NURSING NOTE: PATIENT A/OX3, DENIES PAIN. [facility] PICKED PATIENT UP VIA STRETCHER TO GO TO SNF. REPORT CALLED. IV DISCONTINUED. BELONGINGS WITH PATIENT. PAPERWORK WITH VIVIAN.
== END 2016-05-27 19:40 | DRG 710 ==
LOC: ERH 10:29 → 1NO 12:04 → 2NB 12:04 → ERHI 12:04 → 1NO 05-20 12:58 → 2NB 05-25 16:26
PROVIDERS: Internal Medicine; Physician Assistant Medical; Physician Assistant Surgical; ADMIT Podiatrist Foot & Ankle Surgery
PROC: 0JBR0ZZ Excision of Left Foot Subcutaneous Tissue and Fascia, Open Approach (ICD-10-PCS; principal; 2016-05-24)
PROC: 0Y6J0Z1 Detachment at Left Lower Leg, High, Open Approach (ICD-10-PCS; 2016-05-25)
DX: A41.9 Sepsis, unspecified organism (principal); D64.9 Anemia, unspecified; I24.8 Other forms of acute ischemic heart disease; C80.1 Malignant (primary) neoplasm, unspecified; L03.116 Cellulitis of left lower limb; M86.172 Other acute osteomyelitis, left ankle and foot; C79.89 Secondary malignant neoplasm of other specified sites; L97.524 Non-pressure chronic ulcer of other part of left foot with necrosis of bone; L02.612 Cutaneous abscess of left foot; F17.210 Nicotine dependence, cigarettes, uncomplicated
CPT/HCPCS: 1NP; 2NBP; 75657; 87070; 87075; ERO; 82436; 86920; 87040; 87071; 87147; 88307; 93005; 93010; 93306; 96361; 96374; 97110-GO; 97112-GO; 97116-GO; 97161-GP; 97165-GO; 97530-GO; J0131; J0744; J1170; J1644; J2405; J3370; J3490; J7040; J7042; J7060; P9016